=== PATIENT | female | born 1985 | race Caucasian/White ===

== ENCOUNTER 2016-09-18 18:16 | Emergency (ER) | payer OTHER ==
[~2016-09-18] VITALS: Ht 152.4 cm; Wt 79.4 kg
[2016-09-18 18:16] VITALS: BP 119/62
[~2016-09-18 18:16] MED LIST: DIPH25CA58 PO
[2016-09-18] MEDS ORDERED: DIPH25CA58 PO (18:47)
--- NOTE | 2016-09-18 19:06 | PHYS DOC ---
Past History Past Medical History: No Pertinent History, Kidney Stones, Other Past Surgical History: No Surgical History, Other Alcohol Use: Occasionally Drug Use: None Adult General Chief Complaint Chief Complaint: INSECT BITE [facility] HPI Patient is a pleasant 31-year-old otherwise healthy female who was playing outside yesterday with her 2 children who noted earlier today small circular lesions on the instep right and left forearm measuring 2 in size at most with no central clearing but intensely itchy. She noted no vesicles no other satellite lesions no joint pain no fevers chills headache no abdominal pain no nausea vomiting no other skin lesions other than the 2 noted. She's not had before she took some Benadryl with minimal improvement of her symptoms. There is no red streaking along the skin there is no other complaint. Review of Systems Review of Systems Constitutional: Denies fever or chills [] Eyes: Denies change in visual acuity, redness, or eye pain [] HENT: Denies nasal congestion or sore throat [] Respiratory: Denies cough or shortness of breath [] Cardiovascular: No additional information not addressed in HPI [] GI: Denies abdominal pain, nausea, vomiting, bloody stools or diarrhea [] : Denies dysuria or hematuria [] Musculoskeletal: Denies back pain or joint pain [] Integument: Small circular skin lesion located on the inside of the right and left forearm. Measuring 1-2 cm at most circular in nature Neurologic: Denies headache, focal weakness or sensory changes [] Endocrine: Denies polyuria or polydipsia [] Allergies Allergies Allergies Coded Allergies Type Severity Reaction Last Updated Verified azithromycin Allergy Intermediate 09/30/15 Yes Physical Exam Physical Exam Constitutional: Well developed, well nourished, no acute distress, non-toxic appearance. [] Cardiovascular:Heart rate regular rhythm, no murmur [] Lungs & Thorax: Bilateral breath sounds clear to auscultation [] Abdomen: Bowel sounds normal, soft, no tenderness, no masses, no pulsatile masses. [] Skin: Warm, dry, mild circular erythema measuring 1-2 cm on the inside of the right and left forearm there are only 2 lesions. There is no central clearing there is no joint involvement is not circumferential there is no vesicles has no other satellite lesions. Patient's reveals brisk cap refill at +2+2 peripheral pulses normal strength, sensation no other lymphadenitis noted. Back: No tenderness, no CVA tenderness. [] Extremities: No tenderness, no cyanosis, no clubbing, ROM intact, no edema. [] Neurologic: Alert and oriented X 3, normal motor function, normal sensory function, no focal deficits noted. [] Psychologic: Affect normal, judgement normal, mood normal. [] Current Patient Data Vital Signs Vital Signs Date Time Temp Pulse Resp B/P (MAP) Pulse Ox O2 Delivery O2 Flow Rate FiO2 09/18/16 18:16 98.5 95 20 98 Room Air EKG EKG [] Radiology/Procedures Radiology/Procedures [] Course & Med Decision Making Course & Med Decision Making Pertinent Labs and Imaging studies reviewed. (See chart for details) [] Patient with 2 small circular lesions on likely [place] mite bites based on timing location doubt Lyme disease as are no ticks involved [place] spotted fever, meningitis, disseminated gonorrhea, sepsis, patient will be given Benadryl and supportive care follow up with her primary care doctor. Impression local insect bite envenomation without infection or competition. Disposition outpatient primary care evaluation 24-st 48 hours. Treatment local wound care, Benadryl and precautions Dragon Disclaimer Dragon Disclaimer This chart was dictated in whole or in part using Voice Recognition software in a busy, high-work load, and often noisy Emergency Department environment. It may contain unintended and wholly unrecognized errors or omissions. Departure Departure: Impression: Primary Impression: Insect bite of right arm Additional Impression: Insect bite of arm, left Patient Instructions: Insect Bite Additional Instructions: Please return for any fevers greater than 102.2 local reaction he gets bigger than 3 or 4 cm despite treatment or given any questions concerns about the wound itself. This wound should last few days and get progressively better with the use of Benadryl. But please return if this does not treat your symptoms. Please follow-up with your primary doctor for wound check in 48 hours if one still present. Scripts Diphenhydramine Hcl (BENADRYL) 25 Mg Capsule 1 CAP PO QHS, #30 CAP 1 Refill Prov: DEREK BANDA MD 09/18/16 Problem Qualifiers DEREK BANDA MD September 18, 2016 19:06
== END 2016-09-18 18:56 | disposition home or self-care (01) ==
LOC: ER 18:16
DX: S40.861A Insect bite (nonvenomous) of right upper arm, initial encounter (principal); S40.862A Insect bite (nonvenomous) of left upper arm, initial encounter; Z88.1 Allergy status to other antibiotic agents; W57.XXXA Bitten or stung by nonvenomous insect and other nonvenomous arthropods, initial encounter; Y93.89 Activity, other specified; Y99.8 Other external cause status; Y92.89 Other specified places as the place of occurrence of the external cause
CPT/HCPCS: 99283

== ENCOUNTER 2017-04-22 19:11 | Emergency (ER) | payer OTHER ==
--- NOTE | 2017-04-22 20:23 | PHYS DOC ---
General Chief Complaint: TOE PROBLEM Stated Complaint: LEFT BIG TOE INJURY Time Seen by MD: 19:21 Source: patient Exam Limitations: no limitations Problems: History of Present Illness Initial Comments Patient is a 31-year-old female who comes to the ED complaining of left foot pain. Patient states that she awoke yesterday with pain at her left first MTP joint. She states that she felt like it was swollen, she's tried to stay off of it but it has not gotten any better. Pain is tolerable described as mild to moderate worse with activity better with rest. She denies any trauma she does not wear high heels she has family history of bunions and thinks that she may have to have bunionectomy in the future. She has sought no prior treatment for this condition and has come to the emergency department wearing house slippers. She denies exquisite tenderness to the skin or redness symptoms or family history. No numbness tingling weakness or radiating symptoms no fever chills or myalgias. No pre-arrival treatment. Onset: yesterday Severity: moderate Pain/Injury Location: left 1st toe Method of Injury: unknown Modifying Factors: worse with jarring, worse with movement, improves with rest Allergies: Coded Allergies: azithromycin (Verified Allergy, Intermediate, 09/30/15) Past Medical History Medical History: other (kidney stones ) Surgical History: noncontributory Social History Smoker: cigarettes Alcohol: occasionally Drugs: marijuana Review of Systems Constitutional: denies chills, denies fever, denies malaise Respiratory: denies cough, denies shortness of breath Cardiovascular: denies chest pain, denies palpitations Gastrointestinal: denies abdominal pain, denies nausea, denies vomiting Genitourinary: denies discharge, denies frequency, denies hematuria Musculoskeletal: see HPI Psychiatric/Neurological: see HPI Physical Exam General Appearance: WD/WN, no apparent distress Neck: non-tender, supple Cardiovascular/Respiratory: normal peripheral pulses, no respiratory distress Back: no CVA tenderness, no vertebral tenderness Ankles: bilateral ankle non-tender, bilateral ankle normal inspection, bilateral ankle normal range of motion, bilateral ankle no evidence of injury Feet: right foot non-tender, right foot normal inspection, left foot normal range of motion, left foot no evidence of injury, left foot other (tenderness and mild swelling of the left first MTP joint, no erythema no warmth ligaments and tendons are intact no bony tenderness or palpable bony deformity extremity is neurovascularly intact) Neurologic/Tendon: normal sensation, normal motor functions, normal tendon functions, responds to pain, no evidence tendon injury Psychiatric: alert, oriented x 3 Skin: normal color, warm/dry Orders, Labs, Meds Toes left: No acute osseous abnormality, interpreted by Dr. Etienne. I discussed bunion deformity, activity modification, prescription and over-the- counter medications. I discussed postop shoe and close PCP P follow-up. Recommended discontinue substance abuse signs and symptoms to monitor as well as indications for urgent return were discussed the patient's questions were answered to her satisfaction. She expressed agreement and understanding with the treatment plan. I Tylenol 3 start pack was dispensed for breakthrough pain overnight tonight. Departure Time of Disposition: 20:20 Disposition: HOME, SELF-CARE Diagnosis: hallux valgus left foot Condition: GOOD Patient Instructions: Bunion (Hallux Valgus)-SportsMed, RICE - Routine Care for Injuries, [id number] Additional Instructions: RICE, see handout. A Tylenol 3 starter pack was dispensed to you, take 1 every 6 hours with food for severe breakthrough pain. Prescription: Naprosyn Wear postop shoe as needed for symptom control. Follow-up with your doctor next week for recheck, may need podiatry referral ultimately. Return to ED with new or changing symptoms. ALEXANDRE ETIENNE DO Apr 22, 2017 20:23
[2017-04-22] MEDS ORDERED: NAPR-683 PO (20:25)
[2017-04-22 20:30] VITALS: BP 114/65
[2017-04-22] MEDS ORDERED: ACETAMINOPHEN/CODEINE 300/30MG 4TABLET STARTPACK. PO ONE (20:45)
--- NOTE | 2017-04-23 08:54 | RAD ---
Left great toe 3 views. History: First MTP joint pain and swelling 3 views were taken of the left great toe. There is no fracture or bony destructive process. An erosion is not evident. There is soft tissue swelling. Impression: 1. No acute osseous abnormality noted in the left great toe.
== END 2017-04-22 20:38 | disposition home or self-care (01) ==
LOC: ER 19:11
DX: M20.12 Hallux valgus (acquired), left foot (principal); F17.210 Nicotine dependence, cigarettes, uncomplicated; F12.10 Cannabis abuse, uncomplicated; Z87.442 Personal history of urinary calculi; Z88.1 Allergy status to other antibiotic agents
CPT/HCPCS: 73660; 99284

== ENCOUNTER 2017-06-03 14:55 | Emergency (ER) | payer OTHER ==
[~2017-06-03] VITALS: Ht 152.4 cm; Wt 84.4 kg
[~2017-06-03 14:55] MED LIST changes: +NAPR-683 PO
[2017-06-03 15:41] VITALS: BP 118/73
--- NOTE | 2017-06-04 08:11 | PHYS DOC ---
General Chief Complaint: MEDICATION REFILL Stated Complaint: MED REFILL Time Seen by MD: 14:58 Source: patient Problems: History of Present Illness Initial Comments Patient came to the ED complaining of right hand and arm pain. Patient is wearing a splint, states she suffered a boxer fracture after punching a wall and was seen at the [facility] emergency department last week. She says that a CT was ordered and she may need surgery. States that she had hydrocodone prescription which she has run out of and is requesting a refill. She says she has an orthopedics appointment scheduled for next week and wants pain medications. I asked her who ordered the CT if she has not yet seen orthopedics and she is unable to answer that question. I asked her to the prescribing doctor was for her pain medications again she could not answer that question. There appeared to be some missing details from the history to advise the patient we would obtain records from the [facility] emergency department so we could better care for her, she became dismayed at this and stated she would make a phone call for us. I reassured her that we would get her records quickly and take care of her as needed. [employer] advise me that the patient was not seen at [facility] so I asked if they could find a CT report from yesterday or something to support the patient's story. I went back to fast track to discuss this with the patient and advise her that there would be a little bit longer wait while we tried to find her records however the patient was not in her room and could not be located in the emergency department. She apparently left AMA, drug-seeking behavior and suspicion that she may have been falsifying her story cannot be ruled out at this time. Onset: last week Severity: severe Pain/Injury Location: right hand Method of Injury: direct blow Modifying Factors: improves with other Allergies: Coded Allergies: azithromycin (Verified Allergy, Intermediate, 09/30/15) Past Medical History Surgical History: noncontributory Review of Systems Constitutional: other (no review of systems) Physical Exam General Appearance: WD/WN (no physical exam) Departure Disposition: 07 AGAINST MEDICAL ADVICE Diagnosis: pain medication requests suspicious for drug-seeki Condition: LEFT WITHOUT BEING SEEN ALEXANDRE RUBIO DO Jun 04, 2017 08:11
== END 2017-06-03 17:00 | disposition left against medical advice (07) ==
LOC: ER 14:55
DX: Z76.0 Encounter for issue of repeat prescription (principal); Z53.21 Procedure and treatment not carried out due to patient leaving prior to being seen by health care provider

== ENCOUNTER 2017-10-29 17:11 | Emergency (ER) | payer OTHER ==
[~2017-10-29] VITALS: Ht 152.4 cm; Wt 86.0 kg
[2017-10-29 17:19] VITALS: BP 114/65
--- NOTE | 2017-10-29 17:54 | PHYS DOC ---
Past History Past Medical History: No Pertinent History Past Surgical History: Tubal ligation, Other Additional Smoking Information: 1 pack daily Alcohol Use: None Drug Use: None Adult General Chief Complaint Chief Complaint: HEAD INJURY/TRAUMA HPI HPI 32 -year-old female patient states she hit right side of her head while she was at work and bending under a shelf and suddenly stood up and hit right side of her head against the metal part without loss of consciousness about an hour prior to arrival to ER. Patient rated her pain 7/10 and denies nausea and vomiting, fever and chills, focal neuro deficit, or other injuries. She denies . Patient is not up-to-date with her tetanus immobilization. Review of Systems Review of Systems Constitutional: Denies fever or chills [] Eyes: Denies change in visual acuity, redness, or eye pain [] HENT: Denies nasal congestion or sore throat [] Respiratory: Denies cough or shortness of breath [] Cardiovascular: No additional information not addressed in HPI [] GI: Denies abdominal pain, nausea, vomiting, bloody stools or diarrhea [] : Denies dysuria or hematuria [] Musculoskeletal: Denies back pain or joint pain [] Integument: Denies rash or skin lesions [] Neurologic: Reports headache, denies focal weakness or sensory changes [] Endocrine: Denies polyuria or polydipsia [] All other systems were reviewed and found to be within normal limits, except as documented in this note. Allergies Allergies Allergies Coded Allergies Type Severity Reaction Last Updated Verified azithromycin Allergy Intermediate 09/30/15 Yes Physical Exam Physical Exam Constitutional: Well developed, well nourished, mild distress, non-toxic appearance. [] HENT: Normocephalic, small abrasion of right frontal scalp without active bleeding, bilateral external ears normal, oropharynx moist, no oral exudates, nose normal. [] Eyes: PERRLA, EOMI, conjunctiva normal, no discharge. [] Neck: Normal range of motion, no tenderness, supple, no stridor. [] Cardiovascular:Heart rate regular rhythm, no murmur [] Lungs & Thorax: Bilateral breath sounds clear to auscultation [] Skin: Warm, dry, no erythema, no rash. [] Back: No tenderness, no CVA tenderness. [] Extremities: No tenderness, no cyanosis, no clubbing, ROM intact, no edema. [] Neurologic: Alert and oriented X 3, normal motor function, normal sensory function, no focal deficits noted. [] Psychologic: Affect normal, judgement normal, mood normal. [] Current Patient Data Vital Signs Vital Signs Date Time Temp Pulse Resp B/P (MAP) Pulse Ox O2 Delivery O2 Flow Rate FiO2 10/29/17 17:19 97.9 54 18 97 Room Air EKG EKG [] Radiology/Procedures Radiology/Procedures My interpretation of CT head, shows no shift, mass, edema, bleed, or fracture. See formal report when available.[] Course & Med Decision Making Course & Med Decision Making Pertinent Imaging studies is pending. Patient care transferred to Dr. Shay at 1800. 1. Head Injury 2. Contusion/ Abrasion Patient take Tylenol for pain. Patient follow-up primary care. Patient return of any concerns. Dragon Disclaimer Dragon Disclaimer This electronic medical record was generated, in whole or in part, using a voice recognition dictation system. Departure Departure: Impression: Primary Impression: Head injury Additional Impression: Scalp abrasion Referrals: PCP,NO (PCP) Problem Qualifiers KAMRYN PRINCE MD Oct 29, 2017 17:54 CHEL SHAY MD Oct 29, 2017 18:15
--- NOTE | 2017-10-29 17:58 | RAD ---
EXAM: Head CT without contrast. HISTORY: Trauma. TECHNIQUE: Computed tomographic images of the head were obtained without contrast. *One or more of the following individualized dose reduction techniques were utilized for this examination: 1. Automated exposure control. 2. Adjustment of the mA and/or kV according to patient size. 3. Use of iterative reconstruction technique. COMPARISON: None. FINDINGS: There is no acute or subacute extra-axial or intraparenchymal hemorrhage. There is no mass effect or midline shift. There is no hydrocephalus. The kraus-white matter differentiation pattern is intact. The visualized portions of the orbits, paranasal sinuses and mastoid air cells are unremarkable. No suspicious calvarial lesion is seen. IMPRESSION: No acute intracranial findings. Electronically signed by: Kathy Garcia MD (10/29/2017 5:55 PM) [id number]
[2017-10-29] MEDS: DIPHTH,PERTUSS(ACELL),TET TOX 0.5 ML DISP.SYRIN. VAX IM ONE (18:00)
[2017-10-29] MEDS: KETOROLAC 60 MG/2 ML VIAL. IM ONE (18:17)
== END 2017-10-29 18:15 | disposition home or self-care (01) ==
LOC: ER 17:11
DX: S00.01XA Abrasion of scalp, initial encounter (principal); F17.200 Nicotine dependence, unspecified, uncomplicated; Z88.1 Allergy status to other antibiotic agents; W22.8XXA Striking against or struck by other objects, initial encounter; Y93.89 Activity, other specified; Y99.8 Other external cause status; Y92.89 Other specified places as the place of occurrence of the external cause
CPT/HCPCS: 70450; 90471; 90715; 96372; 99284; J1885

== ENCOUNTER 2018-02-03 08:41 | Emergency (ER) | payer OTHER ==
[~2018-02-03] VITALS: Ht 152.4 cm; Wt 86.0 kg
[2018-02-03 08:47] VITALS: BP 131/84
[2018-02-03] MEDS ORDERED: HYDR25TA PO (09:12)
[2018-02-03] MEDS ORDERED: METH4TAB2 PO (09:12)
--- NOTE | 2018-02-03 09:12 | PHYS DOC ---
Past History Past Medical History: No Pertinent History Past Surgical History: Tubal ligation, Other Smoking: Cigarettes Alcohol Use: None Drug Use: None Adult General Chief Complaint Chief Complaint: SKIN RASH/ABSCESS HPI HPI Patient is a 32 year old female who presents with complaining of rash. Patient states she woke up this morning and had generalized Michael in her extremities with mild itching. Patient denies shortness of breath, tongue swelling, fever and chills, nausea and vomiting. Patient states states she had hives before but this time is worse than her usual. Patient denies taking new medication but she states she tried some fish yesterday that was new for her. Review of Systems Review of Systems Constitutional: Denies fever or chills [] Eyes: Denies change in visual acuity, redness, or eye pain [] HENT: Denies nasal congestion or sore throat [] Respiratory: Denies cough or shortness of breath [] Cardiovascular: No additional information not addressed in HPI [] GI: Denies abdominal pain, nausea, vomiting, bloody stools or diarrhea [] : Denies dysuria or hematuria [] Musculoskeletal: Denies back pain or joint pain [] Integument: Reports rash] Neurologic: Denies headache, focal weakness or sensory changes [] Endocrine: Denies polyuria or polydipsia [] All other systems were reviewed and found to be within normal limits, except as documented in this note. Allergies Allergies Allergies Coded Allergies Type Severity Reaction Last Updated Verified azithromycin Allergy Intermediate 09/30/15 Yes Physical Exam Physical Exam Constitutional: Well developed, well nourished, no acute distress, non-toxic appearance. [] HENT: Normocephalic, atraumatic, bilateral external ears normal, oropharynx moist, no oral exudates, nose normal. [] Eyes: PERRLA, EOMI, conjunctiva normal, no discharge. [] Neck: Normal range of motion, no tenderness, supple, no stridor. [] Cardiovascular:Heart rate regular rhythm, no murmur [] Lungs & Thorax: Bilateral breath sounds clear to auscultation [] Skin: Warm, dry, no erythema, multiple areas of small patchy rash on upper and lower extremities and few areas on upper back and trunk and face Back: No tenderness, no CVA tenderness. [] Extremities: No tenderness, no cyanosis, no clubbing, ROM intact, no edema. [] Neurologic: Alert and oriented X 3, normal motor function, normal sensory function, no focal deficits noted. [] Psychologic: Affect normal, judgement normal, mood normal. [] Current Patient Data Vital Signs Vital Signs Date Time Temp Pulse Resp B/P (MAP) Pulse Ox O2 Delivery O2 Flow Rate FiO2 02/03/18 08:47 98.2 88 18 99 Room Air EKG EKG [] Radiology/Procedures Radiology/Procedures [] Course & Med Decision Making Course & Med Decision Making Evaluation of patient in ER showed 32-year-old female patient with generalized rash with mild itching without shortness of breath or throat swelling. Patient tried a new foods yesterday. Plan discharge patient home with diagnose of allergic rash. Dragon Disclaimer Dragon Disclaimer This electronic medical record was generated, in whole or in part, using a voice recognition dictation system. Departure Departure: Impression: Primary Impression: Rash due to allergy Additional Impression: Tobacco abuse counseling Disposition: HOME, SELF-CARE (at 0909) Condition: STABLE Referrals: PCP,NO (PCP) Patient Instructions: Rash, Smoking Cessation, Tips For Success Additional Instructions: Drink plenty of liquids Follow-up with your primary care physician in 3-5 days Return to ER if not getting better Scripts Hydroxyzine Hcl (HYDROXYZINE HCL) 25 Mg Tablet 1 TAB PO TID PRN for ITCHING, #30 TAB Prov: KAMRYN PRINCE MD 02/03/18 Methylprednisolone (MEDROL) 4 Mg Tab.ds.pk 1 PKG PO UD, #1 PKG Prov: KAMRYN PRINCE MD 02/03/18 Problem Qualifiers KAMRYN PRINCE MD Feb 03, 2018 09:12
== END 2018-02-03 09:14 | disposition home or self-care (01) ==
LOC: ER 08:41
DX: R21 Rash and other nonspecific skin eruption (principal); T78.40XA Allergy, unspecified, initial encounter; F17.210 Nicotine dependence, cigarettes, uncomplicated; Z71.6 Tobacco abuse counseling; Z88.1 Allergy status to other antibiotic agents; X58.XXXA Exposure to other specified factors, initial encounter
CPT/HCPCS: 99283

== ENCOUNTER 2018-02-04 09:35 | Emergency (ER) | payer OTHER ==
[~2018-02-04] VITALS: Ht 152.4 cm; Wt 91.3 kg
[2018-02-04 09:35] VITALS: BP 119/73
[~2018-02-04 09:35] MED LIST changes: +HYDR25TA PO; +METH4TAB2 PO
[2018-02-04] MEDS ORDERED: FAMOTIDINE 20 MG TABLET PO ONE (10:00)
[2018-02-04] MEDS ORDERED: methylPREDNISolone SOD SUCC PF 125 MG/2 ML VIAL. IM ONE (10:00)
--- NOTE | 2018-02-04 10:16 | PHYS DOC ---
Past History Past Medical History: No Pertinent History Past Surgical History: Tubal ligation, Other Smoking: Cigarettes Alcohol Use: Occasionally Drug Use: Marijuana Adult General Chief Complaint Chief Complaint: SKIN RASH/ABSCESS HPI HPI Patient is a 32 year old female who presents with complaining of pruritic rash for the last 3 days that gradually getting worse and complaining of increasing of itching. Patient denies shortness of breath, fever and chills, sick contacts , throat swelling. Patient was seen in this emergency room yesterday and didn't want treatment in ER and had prescription of hydroxyzine and Medrol Dosepak but patient states she had been by her medication and asking for a shot of medication. Review of Systems Review of Systems Constitutional: Denies fever or chills [] Eyes: Denies change in visual acuity, redness, or eye pain [] HENT: Denies nasal congestion or sore throat [] Respiratory: Denies cough or shortness of breath [] Cardiovascular: No additional information not addressed in HPI [] GI: Denies abdominal pain, nausea, vomiting, bloody stools or diarrhea [] : Denies dysuria or hematuria [] Musculoskeletal: Denies back pain or joint pain [] Integument: Reports rash and itching Neurologic: Denies headache, focal weakness or sensory changes [] Endocrine: Denies polyuria or polydipsia [] All other systems were reviewed and found to be within normal limits, except as documented in this note. Current Medications Current Medications Current Medications Medications (Trade) Dose Ordered Sig/Donna Start Time Stop Time Status Last Admin Dose Admin Famotidine (Pepcid) 20 mg 1X ONCE 02/04/18 10:00 02/04/18 10:01 UNV Methylprednisolone Sodium Succinate (SOLU-Medrol 125MG VIAL) 125 mg 1X ONCE 02/04/18 10:00 02/04/18 10:01 UNV Allergies Allergies Allergies Coded Allergies Type Severity Reaction Last Updated Verified azithromycin Allergy Intermediate 09/30/15 Yes Physical Exam Physical Exam Constitutional: Well developed, well nourished, mild distress, non-toxic appearance. [] HENT: Normocephalic, atraumatic, bilateral external ears normal, oropharynx moist, no oral exudates, nose normal. [] Eyes: PERRLA, EOMI, conjunctiva normal, no discharge. [] Neck: Normal range of motion, no tenderness, supple, no stridor. [] Cardiovascular:Heart rate regular rhythm, no murmur [] Lungs & Thorax: Bilateral breath sounds clear to auscultation [] Skin: Warm, dry, no erythema, multiple areas of patchy rash on upper and lower extremities and few area on trunk does sign of infection Back: No tenderness, no CVA tenderness. [] Extremities: No tenderness, no cyanosis, no clubbing, ROM intact, no edema. [] Neurologic: Alert and oriented X 3, normal motor function, normal sensory function, no focal deficits noted. [] Psychologic: Affect normal, judgement normal, mood normal. [] Current Patient Data Vital Signs Vital Signs Date Time Temp Pulse Resp B/P (MAP) Pulse Ox O2 Delivery O2 Flow Rate FiO2 02/04/18 09:35 98.2 75 16 99 Room Air EKG EKG [] Radiology/Procedures Radiology/Procedures [] Course & Med Decision Making Course & Med Decision Making Evaluation of patient in ER showed 33-year-old female patient presented to the emergency room because of pruritic rash that getting worse since yesterday. Patient did not get her medication prescribed in the emergency room yesterday. Patient had unremarkable physical exam except for patchy rash of upper and lower extremities. Patient treated with Solu-Medrol and Pepcid and instructed to buy and start taking her medication. Dragon Disclaimer Dragon Disclaimer This electronic medical record was generated, in whole or in part, using a voice recognition dictation system. Departure Departure: Impression: Primary Impression: Rash due to allergy Additional Impressions: Tobacco abuse Tobacco abuse counseling Disposition: HOME, SELF-CARE (at 1020) Condition: STABLE Referrals: PCP,NO (PCP) Patient Instructions: Rash, Smoking Cessation, Tips For Success Additional Instructions: Buy and take your prescription medication given yesterday Drink plenty of liquids Follow-up with your primary care physician in 3-5 days Return to ER if not getting better Problem Qualifiers KAMRYN PRINCE MD Feb 04, 2018 10:16
== END 2018-02-04 10:20 | disposition home or self-care (01) ==
LOC: ER 09:35
DX: T78.40XA Allergy, unspecified, initial encounter (principal); R21 Rash and other nonspecific skin eruption; F17.210 Nicotine dependence, cigarettes, uncomplicated; Z71.6 Tobacco abuse counseling; Z88.1 Allergy status to other antibiotic agents; X58.XXXA Exposure to other specified factors, initial encounter
CPT/HCPCS: 96372; 99283; J2930

== ENCOUNTER 2018-11-30 10:14 | Emergency (ER) | payer OTHER ==
[~2018-11-30] VITALS: Ht 152.4 cm; Wt 86.5 kg
[2018-11-30] MEDS ORDERED: MORPHINE SULFATE 4 MG/ML DISP.SYRIN. IV ONE (11:15)
[2018-11-30] MEDS ORDERED: ONDANSETRON PF 4 MG/2 ML VIAL. IV ONE (11:15)
[2018-11-30] MEDS ORDERED: IV NORMAL SALINE 1,000ML 1,000 ML IV ONE (11:15)
[2018-11-30] MEDS ORDERED: IOHEXOL 300 MG/ML 75 ML VIAL. IV ONE (11:45)
[2018-11-30 11:53] LABS: BASO % 0 % (0-3); EOS # 0.4 x10^3/uL (0.0-0.7); EOS % 4 % (0-3); HEMATOCRIT 44.7 % (36.0-47.0); HEMOGLOBIN 14.5 g/dL (12.0-15.5); LYMPH # 2.5 x10^3/uL (1.0-4.8); LYMPH % 30 % (24-48); MEAN CORPUSCULAR HEMOGLOBIN 29 pg (25-35); MEAN CORPUSCULAR HGB CONC 33 g/dL (31-37); MEAN CORPUSCULAR VOLUME 88 fL (79-100); MONO # 0.5 x10^3/uL (0.0-1.1); MONO % 6 % (0-9); NEUT # 4.9 x10^3uL (1.8-7.7); NEUT % 59 % (31-73); PLATELET COUNT 303 x10^3/uL (140-400); RED BLOOD COUNT 5.07 x10^6/uL (3.50-5.40); RED CELL DISTRIBUTION WIDTH 14.7 % (11.5-14.5); WHITE BLOOD COUNT 8.3 x10^3/uL (4.0-11.0)
--- NOTE | 2018-11-30 11:55 | PHYS DOC ---
Past History Past Medical History: No Pertinent History Past Surgical History: Cholecystectomy, Other Smoking: Cigarettes Alcohol Use: None Drug Use: Marijuana Social History Narrative: daily Adult General Chief Complaint Chief Complaint: ABDOMINAL PAIN HPI HPI Patient is a 33-year-old female presenting with abdominal pain epigastric related to the back is having for 2 weeks really last night got worse she was do ubled over in pain she was throwing up when she tried to eat this was unusual partner brought her into the emergency room for evaluation she has appointment with Dr. Peters at 2:30 PM at this facility. No fever just the pain trying pain medication with minimal relief. Review of Systems Review of Systems Constitutional: Denies fever or chills [] Eyes: Denies change in visual acuity, redness, or eye pain [] HENT: Denies nasal congestion or sore throat [] Respiratory: Denies cough or shortness of breath [] Cardiovascular: Musculoskeletal: Denies back pain or joint pain [] Integument: Denies rash or skin lesions [] Neurologic: Denies headache, focal weakness or sensory changes [] Endocrine: Denies polyuria or polydipsia [] All other systems were reviewed and found to be within normal limits, except as documented in this note. Current Medications Current Medications Current Medications Medications (Trade) Dose Ordered Sig/Donna Start Time Stop Time Status Last Admin Dose Admin Iohexol (Omnipaque 300 Mg/ml) 75 ml 1X ONCE 11/30/18 11:45 11/30/18 11:46 DC Morphine Sulfate (Morphine 4mg Syringe) 4 mg 1X ONCE 11/30/18 11:15 11/30/18 11:16 DC 11/30/18 11:42 4 MG Ondansetron HCl (Zofran) 4 mg 1X ONCE 11/30/18 11:15 11/30/18 11:16 DC 11/30/18 11:40 4 MG Sodium Chloride 1,000 ml @ 1,000 mls/hr 1X ONCE 11/30/18 11:15 11/30/18 12:14 11/30/18 11:39 1,000 MLS/HR Allergies Allergies Allergies Coded Allergies Type Severity Reaction Last Updated Verified azithromycin Allergy Intermediate 09/30/15 Yes Physical Exam Physical Exam Constitutional: Well developed, mild distress with dry mucous membranes HENT: Normocephalic, atraumatic, bilateral external ears normal, no oral exudates, nose normal. [] Eyes: PERRLA, EOMI, conjunctiva normal, no discharge. [] Neck: Normal range of motion, no tenderness, supple, no stridor. [] Cardiovascular:Heart rate regular rhythm, no murmur [] Lungs & Thorax: Bilateral breath sounds clear to auscultation [] Abdomen: Bowel sounds normal, soft, epigastric tenderness and right upper quadrant tenderness was otherwise well-healed surgical incisions no peritonitis Skin: Warm, dry, no erythema, no rash. [] Back: No tenderness, no CVA tenderness. [] Extremities: No tenderness, no cyanosis, no clubbing, ROM intact, no edema. [] Neurologic: Alert and oriented X 3, normal motor function, normal sensory function, no focal deficits noted. [] Psychologic: Affect normal, judgement normal, mood normal. [] Current Patient Data Vital Signs Vital Signs Date Time Temp Pulse Resp B/P (MAP) Pulse Ox O2 Delivery O2 Flow Rate FiO2 11/30/18 11:42 16 97 Room Air 11/30/18 11:35 60 102/56 (71) 11/30/18 10:14 98.6 Lab Results Laboratory Tests Test 11/30/18 11:39 POC Urine HCG, Qualitative hcg negative (Negative) EKG EKG [] Radiology/Procedures Radiology/Procedures [] Impressions: IMPRESSION: Status post cholecystectomy without evidence for intrahepatic or extrahepatic biliary ductal dilatation. No abscess or free air. IUD is present. There is a 4 mm nonobstructing calculus in the inferior pole the left kidney. No hydronephrosis. Electronically signed by: Audra Heaton MD (11/30/2018 12:34 PM) [id number] Course & Med Decision Making Course & Med Decision Making Pertinent Labs and Imaging studies reviewed. (See chart for details) []33-year-old female who is 2 weeks status post a lap cholecystectomy presenting with right upper quadrant epigastric pain with vomiting differential would include inadequate postoperative pain control versus less likely pancreatitis retained stone bile leak etc. after CT and labs will d/w surgeon noted u/a no symptoms dirty sample likely contaminant, culture pending d/w satish, he can f/u in clinic this afternoon. reviewed ct report and labs. pt felt a little better in the er. gave rx for pain control and antacid Dragon Disclaimer Dragon Disclaimer This electronic medical record was generated, in whole or in part, using a voice recognition dictation system. Departure Departure: Impression: Primary Impression: Abdominal pain Disposition: 01 HOME, SELF-CARE Condition: STABLE Referrals: PCP,LUBA (PCP) Scripts Omeprazole (OMEPRAZOLE) 20 Mg Tablet.dr 1 TAB PO DAILY for pain, #30 TAB 1 Refill Prov: MOHAN REYNA MD 11/30/18 Hydrocodone Bit/Acetaminophen (NORCO 5-325 TABLET) 1 Each Tablet 1 TAB PO BID PRN for PAIN, #12 TAB Prov: MOHAN REYNA MD 11/30/18 MOHAN REYNA MD Nov 30, 2018 11:55
[2018-11-30 11:59] LABS: BACTERIA,URINE MOD /HPF (0-FEW); BILIRUBIN,URINE NEG (NEG); CLARITY,URINE CLOUDY; COLOR,URINE AMBER; GLUCOSE,URINE NEG (NEG); NITRITE,URINE NEG (NEG); RBC,URINE OCC /HPF (0-2); SQUAMOUS EPITHELIAL CELL,UR MOD /LPF; UROBILINOGEN,URINE 0.2 mg/dL (0.2 mg/dL)
[2018-11-30 12:01] LABS: ALBUMIN 3.4 g/dL (3.4-5.0); CREATININE 0.7 mg/dL (0.6-1.0); GFR 96.4; POTASSIUM 3.7 mmol/L (3.5-5.1); TOTAL BILIRUBIN 0.6 mg/dL (0.2-1.0); TOTAL PROTEIN 6.8 g/dL (6.4-8.2)
[2018-11-30] MEDS ORDERED: LIDO:MAALOX 1:1 20 ML SINGLE DOSE. PO ONE (12:15)
--- NOTE | 2018-11-30 12:37 | RAD ---
PQRS Compliance Statement: One or more of the following individualized dose reduction techniques were utilized for this examination: 1. Automated exposure control 2. Adjustment of the mA and/or kV according to patient size 3. Use of iterative reconstruction technique CT abdomen/pelvis with contrast 11/30/2018 11:38 AM INDICATION: Right upper quadrant abdominal pain after cholecystectomy. COMPARISON: None available TECHNIQUE: Multiple axial CT images of the abdomen and pelvis were obtained after the intravenous administration of 75 mL of nonionic contrast. Coronal and sagittal reformats are provided. FINDINGS: Lung bases are clear. Heart size is within normal limits. Liver, spleen, bilateral adrenal glands and pancreas are normal in appearance. Gallbladder surgically absent. No intrahepatic or extrahepatic biliary ductal dilatation. The abdominal aorta is normal in course and caliber. There are no pathologically enlarged lymph nodes in the abdomen and pelvis. There is no abdominal free fluid. There is no free intraperitoneal air. Small and large bowel are normal in caliber. There is no evidence for bowel obstruction. There are no pericolonic inflammatory changes. A normal, nondilated appendix is visualized without adjacent inflammatory changes. There is a 4 mm nonobstructing calculus in inferior pole the left kidney. Kidneys enhance symmetrically. No hydronephrosis or suspicious renal mass. No calculi are identified in the ureters or urinary bladder. Urinary bladder is within normal limits given degree of distention. Uterus is normal by CT. IUD is present. No suspicious adnexal mass is identified. No suspicious osseous abnormality. IMPRESSION: Status post cholecystectomy without evidence for intrahepatic or extrahepatic biliary ductal dilatation. No abscess or free air. IUD is present. There is a 4 mm nonobstructing calculus in the inferior pole the left kidney. No hydronephrosis. Electronically signed by: Audra Heaton MD (11/30/2018 12:34 PM) [id number]
[2018-11-30] MEDS ORDERED: HYDR-3165 PO (13:27)
[2018-11-30] MEDS ORDERED: OMEP20TA8 PO (13:27)
[2018-11-30 13:36] VITALS: BP 123/78
== END 2018-11-30 13:37 | disposition home or self-care (01) ==
LOC: ER 10:14
DX: R10.13 Epigastric pain (principal); R10.11 Right upper quadrant pain; R11.11 Vomiting without nausea; F17.210 Nicotine dependence, cigarettes, uncomplicated; Z90.49 Acquired absence of other specified parts of digestive tract; Z88.1 Allergy status to other antibiotic agents
CPT/HCPCS: 36415; 74177; 80053; 81001; 81025; 83690; 85025; 87086; 96361; 96374; 96375; 99285; J2270; J2405; J3010; Q9967; J7030

== ENCOUNTER 2019-08-05 19:53 | Emergency (ER) | payer OTHER ==
[~2019-08-05] VITALS: Ht 152.4 cm; Wt 84.1 kg
[~2019-08-05 19:53] MED LIST changes: +HYDR-3165 PO; +OMEP20TA8 PO
--- NOTE | 2019-08-05 20:23 | PHYS DOC ---
Past History Past Medical History: No Pertinent History, Bronchitis, Fibromyalgia, Other Past Surgical History: Cholecystectomy, Other Smoking: Cigarettes Alcohol Use: None Drug Use: Marijuana Adult General Chief Complaint Chief Complaint: DIZZY/LIGHT HEADED... " I ve been dizzy... ever since I donated ... blood today.... I usually try..... to donate every 2 [address].. [address]..." HPI HPI Patient is a 34 year old female who presents with above hx and complaints of dizziness after donation of blood. Patient denies any travel outside [place] the area. Patient denies any history of fever or chills. Patient becomes near syncope upon standing rapidly. Patient denies any tachycardia or dysrhythmias. Patient denies any history immunosuppression. Patient denies any specific ill contacts. Does have history of multiple ED visits in past. Patient did not get flu vaccination this season. Patient reportedly donated one unit of blood. 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 Patient did eat prior done name blood but however has not eaten since dilation this morning. Patient does smoke tobacco and marijuana. Review of Systems Review of Systems Constitutional: Denies fever or chills [] Eyes: Denies change in visual acuity, redness, or eye pain [] HENT: Denies nasal congestion or sore throat [] Respiratory: Denies cough or shortness of breath [] Cardiovascular: No additional information not addressed in HPI [. Patient]complaints of near syncope upon standing GI: Denies abdominal pain, vomiting, bloody stools or diarrhea . Patient has complaints of []nausea, : Denies dysuria or hematuria [] Musculoskeletal: Denies back pain or joint pain [] Integument: Denies rash or skin lesions [] Neurologic: Denies headache, focal weakness or sensory changes [] Endocrine: Denies polyuria or polydipsia [] All other systems were reviewed and found to be within normal limits, except as documented in this note. Family History Family History Noncontributory to presentation Current Medications Current Medications See nursing for home meds Allergies Allergies Allergies Coded Allergies Type Severity Reaction Last Updated Verified azithromycin Allergy Intermediate 09/30/15 Yes Physical Exam Physical Exam Constitutional: Mild distress, non-toxic appearance. [] HENT: Normocephalic, atraumatic, bilateral external ears normal, oropharynx dry, no oral exudates, nose normal. [] Eyes: PERRLA, EOMI, conjunctiva normal, no discharge. [] Neck: Normal range of motion, no tenderness, supple, no stridor. [] Cardiovascular:Bradycardia Heart rate regular rhythm, no murmur [] Lungs & Thorax: Bilateral breath sounds equal apex with scattered wheezes on auscultation [] Abdomen: Bowel sounds normal, soft, no tenderness, no masses, no pulsatile masses. Obese. Old surgical scars. Skin: Warm, dry, no erythema, no rash. [] Back: No tenderness, no CVA tenderness. [] Extremities: No tenderness, no cyanosis, no clubbing, ROM intact, no edema. [] Neurologic: Alert and oriented X 3, has sensory function, no focal deficits noted. []DTRs +2 at patella and brachial. Moves extremities on request. Is ambulatory with out problems after fluid bolus. Psychologic: Affect anxious, judgement normal, mood normal. [] Current Patient Data Lab Results Laboratory Tests Test 08/05/19 20:07 Glucose (Fingerstick) 124 mg/dL (70-99) H EKG EKG [] Radiology/Procedures Radiology/Procedures [][place] [address] IMAGING REPORT Signed PATIENT: RAMÓN BROWNLEE CACCOUNT: [id number] : 1985 LOCATION: ER AGE: 34 SEX: F EXAM STATUS: REG ER ORD. PHYSICIAN: CHEL SOLIS MD REASON: dizzy, cough, elev. WBC PROCEDURE: CHEST PA & LATERAL Exam: Chest 2 views INDICATION: Dizzy, cough TECHNIQUE: Frontal and lateral views the chest Comparisons: None FINDINGS: The cardiomediastinal silhouette and pulmonary vessels are within normal limits. The lung and pleural spaces are clear. IMPRESSION: No acute cardiopulmonary process. Electronically signed by: Sandra Hester MD (08/05/2019 9:52 PM) [id number] DICTATED AND SIGNED BY: SANDRA HESTER MD DATE: 08/05/192151 CC: CHEL SOLIS MD; PCP,NO ~ Course & Med Decision Making Course & Med Decision Making Pertinent Labs and Imaging studies reviewed. (See chart for details) Patient to push fluids. Take Tylenol and ibuprofen for discomfort. Push vitamin C drinks. Follow-up urine cultures. Take Keflex 500 mg 3 times a day. Encourage patient does not smoke. Patient follow-up primary care. Return if any concerns. Recommend patient avoid crowds or travel. Self quarantine. Follow with [facility] for up-to-date information on CO 19. [] Dragon Disclaimer Dragon Disclaimer This electronic medical record was generated, in whole or in part, using a voice recognition dictation system. Departure Departure: Disposition: HOME/RESIDENCE PRIOR TO ADM Condition: STABLE Referrals: PCP,NO (PCP) Scripts Cephalexin (KEFLEX) 500 Mg Capsule 500 MG PO TID for UTI for 7 Days, BOTTLE Prov: CHEL SOLIS MD 08/05/19 [place] Disclaimer This chart was dictated in whole or in part using Voice Recognition software in a busy, high-work load, and often noisy Emergency Department environment. It may contain unintended and wholly unrecognized errors or omissions. CHEL SOLIS MD Aug 05, 2019 20:23
[2019-08-05] MEDS ORDERED: IV RINGERS SOLUTION,LACTATED 1,000 ML IV SCH (20:29)
[2019-08-05] MEDS ORDERED: ONDANSETRON PF 4 MG/2 ML VIAL. IVP ONE (20:30)
[2019-08-05 20:50] LABS: BASO # 0.1 x10^3/uL (0.0-0.2); BASO % 1 % (0-3); EOS # 0.3 x10^3/uL (0.0-0.7); EOS % 2 % (0-3); HEMATOCRIT 50.5 % (36.0-47.0); HEMOGLOBIN 16.6 g/dL (12.0-15.5); LYMPH # 6.4 x10^3/uL (1.0-4.8); LYMPH % 43 % (24-48); MEAN CORPUSCULAR HEMOGLOBIN 30 pg (25-35); MEAN CORPUSCULAR HGB CONC 33 g/dL (31-37); MEAN CORPUSCULAR VOLUME 91 fL (79-100); MONO # 0.7 x10^3/uL (0.0-1.1); MONO % 5 % (0-9); NEUT # 7.5 x10^3uL (1.8-7.7); NEUT % 50 % (31-73); PLATELET COUNT 321 x10^3/uL (140-400); RED BLOOD COUNT 5.54 x10^6/uL (3.50-5.40); RED CELL DISTRIBUTION WIDTH 14.4 % (11.5-14.5); WHITE BLOOD COUNT 14.9 x10^3/uL (4.0-11.0)
[2019-08-05 21:06] LABS: CALCIUM 8.1 mg/dL (8.5-10.1); CREATININE 0.8 mg/dL (0.6-1.0); GFR 82.1; POTASSIUM 3.4 mmol/L (3.5-5.1)
[2019-08-05 21:18] LABS: ALBUMIN 3.3 g/dL (3.4-5.0); DIRECT BILIRUBIN 0.1 mg/dL (0.0-0.2); MAGNESIUM 1.9 mg/dL (1.8-2.4); TOTAL BILIRUBIN 0.5 mg/dL (0.2-1.0); TOTAL PROTEIN 6.3 g/dL (6.4-8.2)
[2019-08-05] MEDS ORDERED: cefTRIAXone SODIUM 1 GM VIAL ONE (21:38)
[2019-08-05] MEDS ORDERED: IV NORMAL SALINE 50ML 50 ML ONE (21:38)
[2019-08-05 21:45] LABS: BARBITURATES NEG (NEG); BENZODIAZEPINES NEG (NEG); CANNABINOIDS POS (NEG); COCAINE NEG (NEG); METHADONE NEG (NEG); OPIATES NEG (NEG); PHENCYCLIDINE NEG (NEG)
[2019-08-05] MEDS ORDERED: ACETAMINOPHEN 500 MG TABLET PO ONE ×2 (21:48→22:00)
[2019-08-05 21:50] LABS: AMPHETAMINE/METHAMPHETAMINE NEG (NEG)
[2019-08-05 21:53] VITALS: BP 95/61
--- NOTE | 2019-08-05 21:55 | RAD ---
Exam: Chest 2 views INDICATION: Dizzy, cough TECHNIQUE: Frontal and lateral views the chest Comparisons: None FINDINGS: The cardiomediastinal silhouette and pulmonary vessels are within normal limits. The lung and pleural spaces are clear. IMPRESSION: No acute cardiopulmonary process. Electronically signed by: Sandra Muller MD (08/05/2019 9:52 PM) [id number]
[2019-08-05 22:00] LABS: SEDIMENTATION RATE 5 (0-25)
[2019-08-05 22:09] LABS: BACTERIA,URINE MANY /HPF (0-FEW); BILIRUBIN,URINE NEG (NEG); CLARITY,URINE CLOUDY; COLOR,URINE YELLOW; GLUCOSE,URINE NEG (NEG); NITRITE,URINE POS (NEG); UROBILINOGEN,URINE 0.2 mg/dL (0.2 mg/dL); WBC,URINE 20-40 /HPF (0-4)
[2019-08-05 22:10] LABS: SQUAMOUS EPITHELIAL CELL,UR FEW /LPF
[2019-08-05] MEDS ORDERED: CEPH-264 PO (22:16)
--- NOTE | 2019-08-06 00:40 | EKG ---
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
== END 2019-08-05 22:25 | disposition home or self-care (01) ==
LOC: ER 19:53
DX: R55 Syncope and collapse (principal); M79.7 Fibromyalgia; F17.210 Nicotine dependence, cigarettes, uncomplicated; Z88.1 Allergy status to other antibiotic agents
CPT/HCPCS: 36415; 71046; 80048; 80076; 80307; 81001; 81025; 82550; 82947; 83605; 83735; 83880; 84443; 84484; 85025; 85379; 85610; 85651; 85730; 87040; 87086; 93005; 96361; 96365; 99285; J0696; J7120

== ENCOUNTER 2019-10-29 10:16 | Emergency (ER) | payer OTHER ==
[~2019-10-29] VITALS: Ht 152.4 cm; Wt 77.9 kg
[~2019-10-29 10:16] MED LIST changes: +CEPH-264 PO
[2019-10-29] MEDS ORDERED: IOHEXOL 300 MG/ML 75 ML VIAL. IV ONE ×2 (11:00)
[2019-10-29] MEDS ORDERED: ONDANSETRON PF 4 MG/2 ML VIAL. IVP ONE (11:00)
--- NOTE | 2019-10-29 11:04 | PHYS DOC ---
Past History Past Medical History: Bronchitis, Fibromyalgia, Kidney Stones, Other Past Surgical History: Cholecystectomy, Tubal ligation, Other Additional Past Surgical Histo: HERNIA Smoking: Cigarettes Alcohol Use: Rarely Drug Use: Marijuana General Adult EDM: Chief Complaint: ABDOMINAL PAIN HPI: HPI: 34-year-old female presents with right lower quadrant abdominal pain. She has been having intermittent, sharp pain in this area for about 3 days. The pain is worse with bouncing or walking. When she sits down, it is more of a pressure sensation versus sharp. She has a history of kidney stones but states that this pain feels different. She has had some nausea today and decided she needed to be evaluated. She denies fever chills. She has a history of cholecystectomy and tubal ligation. She still has her appendix. Review of Systems: Review of Systems: Constitutional: Denies fever or chills Eyes: Denies change in visual acuity HENT: Denies nasal congestion or sore throat Respiratory: Denies cough or shortness of breath Cardiovascular: Denies chest pain or edema GI: Right lower quadrant abdominal pain, nausea. : Denies dysuria Musculoskeletal: Right low back pain Integument: Denies rash Neurologic: Denies headache, focal weakness or sensory changes Endocrine: Denies polyuria or polydipsia Lymphatic: Denies swollen glands Psychiatric: Denies depression or anxiety Heart Score: Risk Factors: Risk Factors: DM, Current or recent (<one month) smoker, HTN, HLP, family history of CAD, obesity. Risk Scores: Score 0 - 3: 2.5% MACE over next 6 weeks - Discharge Home Score 4 - 6: 20.3% MACE over next 6 weeks - Admit for Clinical Observation Score 7 - 10: 72.7% MACE over next 6 weeks - Early Invasive Strategies Current Medications: Current Meds: Current Medications Medications (Trade) Dose Ordered Sig/Donna Start Time Stop Time Status Last Admin Dose Admin Iohexol (Omnipaque 300 Mg/ml) 75 ml 1X ONCE 10/29/19 11:00 10/29/19 11:01 UNV Ondansetron HCl (Zofran) 4 mg 1X ONCE 10/29/19 11:00 10/29/19 11:01 DC 10/29/19 10:53 4 MG Allergies: Allergies: Allergies Coded Allergies Type Severity Reaction Last Updated Verified azithromycin Allergy Intermediate 5/17/16 Yes Physical Exam: PE: Constitutional: Well developed, well nourished, no acute distress, non-toxic appearance. [] HENT: Normocephalic, atraumatic, bilateral external ears normal, oropharynx moist, no oral exudates, nose normal. [] Eyes: PERRLA, EOMI, conjunctiva normal, no discharge. [] Neck: Normal range of motion, no tenderness, supple, no stridor. [] Cardiovascular:Heart rate regular rhythm, no murmur [] Lungs & Thorax: Bilateral breath sounds clear to auscultation [] Abdomen: Bowel sounds normal, soft, right lower quadrant tenderness with rebound tenderness, no masses, no pulsatile masses. [] Skin: Warm, dry, no erythema, no rash. [] Back: No tenderness, no CVA tenderness. [] Extremities: No tenderness, no cyanosis, no clubbing, ROM intact, no edema. [] Neurologic: Alert and oriented X 3, normal motor function, normal sensory function, no focal deficits noted. [] Psychologic: Affect normal, judgement normal, mood normal. [] Current Patient Data: Vital Signs: Vital Signs Date Time Temp Pulse Resp B/P (MAP) Pulse Ox O2 Delivery O2 Flow Rate FiO2 15/20 10:25 97.7 63 20 99/62 (74) 98 Room Air EKG: EKG: [] Radiology/Procedures: Radiology/Procedures: [] Impressions: CT abdomen and pelvis with contrast History: Right lower quadrant pain Technique: After the administration of intravenous contrast, CT imaging was performed of the abdomen and pelvis. No oral contrast was given as per request. Multiplanar images are reviewed. Exposure: One or more of the following individualized dose reduction techniques were utilized for this examination: 1. Automated exposure control 2. Adjustment of the mA and/or kV according to patient size 3. Use of iterative reconstruction technique. Comparison: November 30, 2018 Findings: There is no significant abnormality of the visualized lung bases. There is no significant abnormality of the liver, spleen, pancreas, adrenal glands. Both kidneys enhance without hydronephrosis. There is again 0.4-0.5 cm inferior left renal calculus. There has been cholecystectomy. Accurate evaluation of bowel is limited without oral contrast. There is no significant inflammatory change adjacent to the bowel. There is no evidence of bowel obstruction, free fluid, or free air. There is some variable wall prominence of the small bowel. Appendiceal caliber is within normal limits, not associated with new significant adjacent inflammatory-type change. There is again IUD in the uterus. Impression: 1. There is no CT evidence of acute appendicitis. There is some variable wall prominence of the small bowel, could be seen with enteritis in the appropriate clinical setting. 2. There is again small nonobstructive inferior left renal calculus. Electronically signed by: Danie Barber MD (10/29/2019 11:28 AM) [id number] DICTATED AND SIGNED BY: DANIE BARBER MD DATE: 10/29/19 1128 CC: LIOR FRANCIS DO; KEY VIDALES ~ Course & Med Decision Making: Course & Med Decision Making Pertinent Labs and Imaging studies reviewed. (See chart for details) The patient's labs are unremarkable. CT of the abdomen and pelvis is negative for appendicitis. There is some slight inflammation of the small bowel. See official report for more details. Her urinalysis is suggestive of urinary tract infection. I will treat her with a gram of Rocephin in the ED and 3 days of Keflex at home. She is stable for discharge at this time. [] Dragon Disclaimer: Dragon Disclaimer: This electronic medical record was generated, in whole or in part, using a voice recognition dictation system. Departure Departure: Impression: Primary Impression: Urinary tract infection Qualified Codes: N30.01 - Acute cystitis with hematuria Disposition: HOME/RESIDENCE PRIOR TO ADM Condition: STABLE Referrals: KEY VIDALES (PCP) Patient Instructions: Urinary Tract Infection, [id number] Scripts Cephalexin (KEFLEX) 500 Mg Capsule 1 CAP PO TID for UTI for 3 Days, #9 CAP 0 Refills start 10/30/2019 Prov: LIOR FRANCIS DO 10/29/19 Justification of Admission: Justification of Admission: Justification of Admission Dx: No LIOR FRANCIS DO Oct 29, 2019 11:04
[2019-10-29 11:07] LABS: BASO # 0.1 x10^3/uL (0.0-0.2); BASO % 1 % (0-3); EOS # 0.4 x10^3/uL (0.0-0.7); EOS % 5 % (0-3); HEMATOCRIT 44.7 % (36.0-47.0); HEMOGLOBIN 14.8 g/dL (12.0-15.5); LYMPH # 2.6 x10^3/uL (1.0-4.8); LYMPH % 33 % (24-48); MEAN CORPUSCULAR HEMOGLOBIN 31 pg (25-35); MEAN CORPUSCULAR HGB CONC 33 g/dL (31-37); MEAN CORPUSCULAR VOLUME 92 fL (79-100); MONO # 0.5 x10^3/uL (0.0-1.1); MONO % 6 % (0-9); NEUT # 4.4 x10^3uL (1.8-7.7); NEUT % 56 % (31-73); PLATELET COUNT 263 x10^3/uL (140-400); RED BLOOD COUNT 4.87 x10^6/uL (3.50-5.40); RED CELL DISTRIBUTION WIDTH 14.5 % (11.5-14.5); WHITE BLOOD COUNT 7.9 x10^3/uL (4.0-11.0)
[2019-10-29 11:09] LABS: CALCIUM 8.6 mg/dL (8.5-10.1); CREATININE 0.8 mg/dL (0.6-1.0); GFR 82.1; POTASSIUM 4.4 mmol/L (3.5-5.1)
[2019-10-29 11:14] LABS: ALBUMIN 3.3 g/dL (3.4-5.0); TOTAL BILIRUBIN 0.3 mg/dL (0.2-1.0); TOTAL PROTEIN 6.5 g/dL (6.4-8.2)
[2019-10-29 11:21] LABS: BACTERIA,URINE MOD /HPF (0-FEW); BILIRUBIN,URINE NEG (NEG); CLARITY,URINE HAZY; COLOR,URINE YELLOW; GLUCOSE,URINE NEG (NEG); NITRITE,URINE NEG (NEG); SQUAMOUS EPITHELIAL CELL,UR MANY /LPF; UROBILINOGEN,URINE 0.2 mg/dL (0.2 mg/dL); WBC,URINE >40 /HPF (0-4)
--- NOTE | 2019-10-29 11:31 | RAD ---
CT abdomen and pelvis with contrast History: Right lower quadrant pain Technique: After the administration of intravenous contrast, CT imaging was performed of the abdomen and pelvis. No oral contrast was given as per request. Multiplanar images are reviewed. Exposure: One or more of the following individualized dose reduction techniques were utilized for this examination: 1. Automated exposure control 2. Adjustment of the mA and/or kV according to patient size 3. Use of iterative reconstruction technique. Comparison: November 30, 2018 Findings: There is no significant abnormality of the visualized lung bases. There is no significant abnormality of the liver, spleen, pancreas, adrenal glands. Both kidneys enhance without hydronephrosis. There is again 0.4-0.5 cm inferior left renal calculus. There has been cholecystectomy. Accurate evaluation of bowel is limited without oral contrast. There is no significant inflammatory change adjacent to the bowel. There is no evidence of bowel obstruction, free fluid, or free air. There is some variable wall prominence of the small bowel. Appendiceal caliber is within normal limits, not associated with new significant adjacent inflammatory-type change. There is again IUD in the uterus. Impression: 1. There is no CT evidence of acute appendicitis. There is some variable wall prominence of the small bowel, could be seen with enteritis in the appropriate clinical setting. 2. There is again small nonobstructive inferior left renal calculus. Electronically signed by: Sam Griffith MD (10/29/2019 11:28 AM) [id number]
[2019-10-29] MEDS ORDERED: CEPH-264 PO (11:57)
[2019-10-29] MEDS ORDERED: IV NORMAL SALINE 50ML 50 ML ONE (12:02)
[2019-10-29] MEDS ORDERED: cefTRIAXone SODIUM 1 GM VIAL ONE (12:02)
[2019-10-29 12:25] VITALS: BP 101/51
== END 2019-10-29 12:30 | disposition home or self-care (01) ==
LOC: ER 10:16
DX: M54.5 Low back pain (principal); N30.01 Acute cystitis with hematuria; M79.7 Fibromyalgia; Z87.442 Personal history of urinary calculi; Z90.49 Acquired absence of other specified parts of digestive tract; Z98.51 Tubal ligation status; F17.210 Nicotine dependence, cigarettes, uncomplicated; Z88.1 Allergy status to other antibiotic agents
CPT/HCPCS: 36415; 74177; 80053; 81001; 85025; 87086; 96365; 96375; 99285; J0696; J2405; Q9967

== ENCOUNTER 2020-02-13 06:50 | Emergency (ER) | payer OTHER ==
[~2020-02-13] VITALS: Ht 152.4 cm; Wt 88.0 kg
[2020-02-13 07:57] LABS: BASO # 0.1 x10^3/uL (0.0-0.2); BASO % 1 % (0-3); EOS # 0.2 x10^3/uL (0.0-0.7); EOS % 3 % (0-3); HEMATOCRIT 46.3 % (36.0-47.0); HEMOGLOBIN 15.3 g/dL (12.0-15.5); LYMPH # 2.6 x10^3/uL (1.0-4.8); LYMPH % 31 % (24-48); MEAN CORPUSCULAR HEMOGLOBIN 30 pg (25-35); MEAN CORPUSCULAR HGB CONC 33 g/dL (31-37); MEAN CORPUSCULAR VOLUME 91 fL (79-100); MONO # 0.4 x10^3/uL (0.0-1.1); MONO % 5 % (0-9); NEUT # 5.1 x10^3uL (1.8-7.7); NEUT % 61 % (31-73); PLATELET COUNT 290 x10^3/uL (140-400); RED BLOOD COUNT 5.08 x10^6/uL (3.50-5.40); RED CELL DISTRIBUTION WIDTH 13.8 % (11.5-14.5); WHITE BLOOD COUNT 8.4 x10^3/uL (4.0-11.0)
[2020-02-13 08:06] LABS: CALCIUM 9.1 mg/dL (8.5-10.1); CREATININE 0.9 mg/dL (0.6-1.0); GFR 71.7; POTASSIUM 3.9 mmol/L (3.5-5.1)
--- NOTE | 2020-02-13 08:11 | RAD ---
EXAM: CHEST ONE VIEW. HISTORY: Shortness of breath, cough. COMPARISON: 08/05/2019. FINDINGS: A frontal view of the chest is obtained. There are no confluent infiltrates. There is no pneumothorax or pleural effusion. The heart is not enlarged. IMPRESSION: 1. No confluent infiltrates. Electronically signed by: Carina Boyce MD (02/13/2020 8:07 AM) [id number]
[2020-02-13 08:18] LABS: ALBUMIN 3.7 g/dL (3.4-5.0); C REACTIVE PROTEIN 14.4 mg/L (0-3.3); TOTAL BILIRUBIN 1.4 mg/dL (0.2-1.0); TOTAL PROTEIN 7.5 g/dL (6.4-8.2)
--- NOTE | 2020-02-13 08:32 | PHYS DOC ---
Past History Past Medical History: Bronchitis, Fibromyalgia, Kidney Stones, UTI Past Surgical History: Cholecystectomy, Tubal ligation, Other Additional Past Surgical Histo: HERNIA Smoking: Cigarettes Alcohol Use: Rarely Drug Use: Marijuana Adult General Chief Complaint Chief Complaint: COUGH HPI HPI Patient is a 34-year-old female who presents to the emergency room with several hours of cough, chest tightness, fatigue. She states that she recently had a sore throat and at that time was swabbed for COVID and was negative. She returned to work over the next couple of days she was around several people who were coughing and sneezing. She woke up this morning ill. She denies any fevers. She states the chest tightness is worse in the front and is worse anytime she coughs or tries to take a deep breath. She has some mild shortness of breath but is able to walk long distances without stopping. Review of Systems Review of Systems General: Denies fever, chills, sweats.reports fatigue Eyes: Denies drainage, blurred vision, eye redness HENT: Denies rhinorrhea, sore throat, earache Respiratory: Reports cough, shortness of breath, chest tightness Cardiac: Denies edema, palpitations, chest pain GI: Denies abdominal pain, Nausea, vomiting MSK: Denies back pain, neck pain Skin: Denies rash, jaundice Neuro: Denies headache, dizziness Psychiatric: Denies SI/HI Allergies Allergies Allergies Coded Allergies Type Severity Reaction Last Updated Verified azithromycin Allergy Intermediate 02/13/20 Yes Physical Exam Physical Exam General: Awake, alert, NAD. Well Nourished, well hydrated. Cooperative HEENT: Atraumatic, EOMI, PERRL, airway patent, moist oral mucosa Neck: Supple, trachea midline Respiratory: CTA bilaterally, normal effort, no wheezing/crackles, upper airway noise CV: RRR, no murmur, cap refill <2 GI: Soft, nondistended, nontender, no masses MSK: No obvious deformities Skin: Warm, dry, intact Neuro: A&O x3, speech NL, sensory and motor grossly intact, no focal deficits Psych: Normal affect, normal mood, not suicidal or homicidal Current Patient Data Vital Signs Vital Signs Date Time Temp Pulse Resp B/P (MAP) Pulse Ox O2 Delivery O2 Flow Rate FiO2 02/13/20 07:20 98.4 78 18 119/64 (82) 95 Room Air Lab Results Laboratory Tests Test 02/13/20 07:30 White Blood Count 8.4 x10^3/uL (4.0-11.0) Red Blood Count 5.08 x10^6/uL (3.50-5.40) Hemoglobin 15.3 g/dL (12.0-15.5) Hematocrit 46.3 % (36.0-47.0) Mean Corpuscular Volume 91 fL (79-100) Mean Corpuscular Hemoglobin 30 pg (25-35) Mean Corpuscular Hemoglobin Concent 33 g/dL (31-37) Red Cell Distribution Width 13.8 % (11.5-14.5) Platelet Count 290 x10^3/uL (140-400) Neutrophils (%) (Auto) 61 % (31-73) Lymphocytes (%) (Auto) 31 % (24-48) Monocytes (%) (Auto) 5 % (0-9) Eosinophils (%) (Auto) 3 % (0-3) Basophils (%) (Auto) 1 % (0-3) Neutrophils # (Auto) 5.1 x10^3uL (1.8-7.7) Lymphocytes # (Auto) 2.6 x10^3/uL (1.0-4.8) Monocytes # (Auto) 0.4 x10^3/uL (0.0-1.1) Eosinophils # (Auto) 0.2 x10^3/uL (0.0-0.7) Basophils # (Auto) 0.1 x10^3/uL (0.0-0.2) Sodium Level 140 mmol/L (136-145) Potassium Level 3.9 mmol/L (3.5-5.1) Chloride Level 104 mmol/L (98-107) Carbon Dioxide Level 26 mmol/L (21-32) Anion Gap 10 (6-14) Blood Urea Nitrogen 13 mg/dL (7-20) Creatinine 0.9 mg/dL (0.6-1.0) Estimated GFR (Cockcroft-Gault) 71.7 BUN/Creatinine Ratio 14 (6-20) Glucose Level 83 mg/dL (70-99) Calcium Level 9.1 mg/dL (8.5-10.1) Total Bilirubin 1.4 mg/dL (0.2-1.0) H Aspartate Amino Transferase (AST) 18 U/L (15-37) Alanine Aminotransferase (ALT) 19 U/L (14-59) Alkaline Phosphatase 84 U/L (46-116) Lactate Dehydrogenase 187 U/L (81-234) Creatine Kinase 213 U/L (26-192) H Troponin I Quantitative < 0.017 ng/mL (0-0.055) C-Reactive Protein 14.4 mg/L (0-3.3) H JV-Ozd-[id number]-Type Natriuretic Peptide 62 pg/mL (0-124) Total Protein 7.5 g/dL (6.4-8.2) Albumin 3.7 g/dL (3.4-5.0) Albumin/Globulin Ratio 1.0 (1.0-1.7) EKG EKG [] Radiology/Procedures Radiology/Procedures [] Course & Med Decision Making Course & Med Decision Making Pertinent Labs and Imaging studies reviewed. (See chart for details) Patient is a 34-year-old female who presents to the emergency room with cough, shortness of breath, body aches. At this time there is concern for the novel coronavirus 19. Risk stratifying work-up was ordered including chest x-ray, d- dimer, CPK, CRP, LDH, troponin, ferritin, CBC, CMP. Due to concern of COVID-19 I have discussed the importance of quarantining with the patient. I have discussed with them that they should avoid grocery stores, gas stations, pharmacies, work, friends/family's homes. I discussed with him that it is important that they do not expose themselves to anyone else for the next 14 days. Chest x-ray does not show infiltrates at this time and patient will not be treated with empiric antibiotics. I have discussed with the patient the course of the illness and we have discussed strict return precautions. At this time patient does not need admission as they are stable, however it is possible that they may get worse over the next few days and we have discussed the importance of coming back if they develop severe shortness of breath or any other symptoms that they are concerned about. Patient's test results and vitals while in the ED were fully reviewed and discussed with the patient. Patient is stable and at this time does not need admission to the hospital. We have discussed strict return precautions and the importance of following up with their Primary Care Physician. Patient stated understanding and was given an opportunity to ask any questions. Dragon Disclaimer Dragon Disclaimer This electronic medical record was generated, in whole or in part, using a voice recognition dictation system. Departure Departure: Impression: Primary Impression: Suspected 2019 novel coronavirus infection Disposition: HOME/RESIDENCE PRIOR TO ADM Condition: STABLE Referrals: KEY VIDALES (PCP) Patient Instructions: Shortness of Breath, [id number] Additional Instructions: Thank you for visiting [facility]. We appreciate you trusting us with your care. If any additional problems come up please don't hesitate to return to visit us. Follow up with your primary care provider so they can plan additional care if needed and know about the problem that you had today. If symptoms worsen come back to the Emergency Department. Any concerning symptoms that start such as chest pain, shortness of air, weakness or numbness on one side of the body, running high fevers or any other concerning symptoms return to the ER. You have a viral syndrome which may include symptoms like muscle aches, fevers, chills, runny nose, cough, sneezing, sore throat, nausea, vomiting, or diarrhea. One of the potential viruses that you may have is SARS-CoV-2, the virus that causes COVID-19, also known as the Coronavirus. You are just as likely to have a different viral infection such as the common cold, flu, etc. Most patients with the Coronavirus have mild symptoms and recover on their own. Resting, staying hydrated, and sleep based on known cases can be helpful. As of todays visit, you are well enough to go home and treat your symptoms with oral fluids and over the counter medications. Coronavirus testing is not performed on most people with mild symptoms who are being discharged from the emergency department. If Coronavirus testing was performed today the results will not be available for possibly up to 3-4 days. If your result is positive you will be contacted. Please follow the following precautions at home: 1. Stay home except to get medical care. 2. As advised by the CDC, we recommend that you stay in your home and minimize contact with other people. We do not want you to spread the infection. 3. Those who are older or have significant medical issues may have more severe symptoms from this infection. We recommend self-isolation FOR AT LEAST 7 DAYS after your 1st day of symptoms. AFTER you feel better please wait AT LEAST ANOT HER WEEK before returning to regular activities and being around other people. 4. IF you become sicker and have difficulty breathing, chest pain, are unable to eat/drink, severe vomiting, diarrhea, or weakness you may need to return to the Emergency Department. 5. You should restrict activities outside of your home, except for getting medical care. DO NOT go to work, school, or public areas. Avoid using public transportation, ride sharing, or taxis. 6. Separate yourself from other people in your home. You should use a separate bathroom if possible. 7. Avoid sharing personal household items such as dishes, cups, eating utensils, towels, etc. 8. Clean all high touch surfaces every day (door knobs, counter tops, etc). Use a household cleaning spray or wipe per label instructions. 9. Clean your hands often. Wash your hands with soap and water for at least 20 seconds. 10. Cover your mouth and nose when you cough or sneeze. 11. Throw used tissues in the trash and immediately wash your hands. For additional resources please visit the CDC website or the [facility] ([phone]), you may also call 211 for further information. Scripts Benzonatate (TESSALON PERLE) 100 Mg Capsule 1 CAP PO TID PRN for COUGH, #21 CAP Prov: REED JULIO MD 02/13/20 Albuterol Sulfate (VENTOLIN HFA INHALER) 18 Gm Hfa.aer.ad 1 PUFF IH PRN Q4HRS PRN for FOR ASTHMA, #1 INHALER 0 Refills Prov: REED JULIO MD 02/13/20 Methylprednisolone (MEDROL) 4 Mg Tab.ds.pk 1 PKG PO UD for bronchitis, #1 PKG Prov: REED JULIO MD 02/13/20 Justification of Admission: Justification of Admission: Justification of Admission Dx: N/A REED JULIO MD Feb 13, 2020 08:32
[2020-02-13] MEDS ORDERED: BENZ100C PO (08:43)
[2020-02-13] MEDS ORDERED: METH4TAB2 PO (08:43)
[2020-02-13] MEDS ORDERED: ALBU2.5V8 IH (08:43)
[2020-02-13 09:06] VITALS: BP 96/73
--- NOTE | 2020-02-15 14:52 | NUR ---
IP: notified patient of COVID result.
== END 2020-02-13 09:11 | disposition home or self-care (01) ==
LOC: ER 06:50
DX: R07.89 Other chest pain (principal); R53.83 Other fatigue; J02.9 Acute pharyngitis, unspecified; Z20.828 Contact with and (suspected) exposure to other viral communicable diseases; M79.7 Fibromyalgia; Z87.442 Personal history of urinary calculi; Z87.440 Personal history of urinary (tract) infections; Z90.89 Acquired absence of other organs; Z98.51 Tubal ligation status; Z88.1 Allergy status to other antibiotic agents
CPT/HCPCS: 36415; 71045; 80053; 82550; 83615; 83880; 84484; 85025; 86140; 99284; U0003

== ENCOUNTER 2020-04-16 09:39 | Emergency (ER) | payer OTHER ==
[~2020-04-16] VITALS: Ht 152.4 cm; Wt 88.0 kg
[~2020-04-16 09:39] MED LIST changes: +ALBU2.5V8 IH; +BENZ100C PO
[2020-04-16] MEDS ORDERED: METOCLOPRAMIDE HCL 10 MG/2 ML VIAL. ONE (09:51)
[2020-04-16] MEDS ORDERED: KETOROLAC 15 MG/ML VIAL. ONE (09:51)
[2020-04-16] MEDS ORDERED: KETOROLAC 15 MG/ML VIAL. IVP ONE (10:00)
[2020-04-16] MEDS ORDERED: IV NORMAL SALINE 1,000ML 1,000 ML IV ONE (10:00)
[2020-04-16] MEDS ORDERED: METOCLOPRAMIDE HCL 10 MG/2 ML VIAL. IVP ONE (10:00)
--- NOTE | 2020-04-16 10:00 | PHYS DOC ---
Past History Past Medical History: Bronchitis, Fibromyalgia, Kidney Stones, UTI Past Surgical History: Cholecystectomy, Tubal ligation, Other Additional Past Surgical Histo: HERNIA Smoking: Cigarettes Alcohol Use: Rarely Drug Use: Marijuana General Adult EDM: Chief Complaint: FLANK PAIN HPI: HPI: Patient is a 34 year old female who presents with left flank pain that began last night. Patient has a history of kidney stones and infection, and had a stent placed last year. Patient took Tyelonol 2 hours ago without relief. Denies fever, N/V. Denies due to tubal ligation. Review of Systems: Review of Systems: Constitutional: Denies fever or chills Eyes: Denies redness or eye pain HENT: Denies nasal congestion or sore throat Respiratory: Denies cough or shortness of breath Cardiovascular: Denies chest pain or palpitations GI: Denies abdominal pain, nausea, or vomiting. : Denies dysuria or hematuria Musculoskeletal: Denies back pain or joint pain. Reports left flank and groin pain that is beginning to spread to right side. Integument: Denies rash or skin lesions Neurologic: Denies headache, focal weakness or sensory changes Complete systems were reviewed and found to be within normal limits, except as documented in this note. Current Medications: Current Meds: Current Medications Medications (Trade) Dose Ordered Sig/Donna Start Time Stop Time Status Last Admin Dose Admin Ketorolac Tromethamine (Toradol 15mg Vial) 15 mg 1X ONCE 04/16/20 10:00 04/16/20 10:01 UNV Metoclopramide HCl (Reglan Vial) 10 mg 1X ONCE 04/16/20 10:00 04/16/20 10:01 UNV Sodium Chloride 1,000 ml @ 1,000 mls/hr 1X ONCE 04/16/20 10:00 04/16/20 10:59 UNV Allergies: Allergies: Allergies Coded Allergies Type Severity Reaction Last Updated Verified azithromycin Allergy Intermediate 02/13/20 Yes Physical Exam: PE: Constitutional: Well developed, well nourished, no acute distress, non-toxic appearance HENT: Normocephalic, atraumatic Eyes: Conjunctiva normal, no discharge Neck: Normal range of motion, no tenderness, supple Lungs & Thorax: No respiratory distress, equal chest rise and fall Abdomen: Soft, no tenderness. Skin: Warm, dry, no erythema, no rash Back: Pain over left flank and groin area, and slight pain at right flank. Extremities: No tenderness, ROM intact, no edema Neurologic: Alert and oriented X 3, normal motor function, normal sensory function, no focal deficits noted Psychologic: Affect normal, judgment normal Radiology/Procedures: Radiology/Procedures: PROCEDURE: CT ABDOMEN PELVIS WO CONTRAST Exam: CT abdomen/pelvis without intravenous contrast Indication: Left flank pain, evaluate for ureteral calculi Comparison: CT abdomen and pelvis 10/29/2019 Technique: Helical CT imaging performed of the abdomen and pelvis without the use of intravenous contrast. Sagittal and coronal reformats were obtained. One or more of the following individualized dose reduction techniques were utilized for this examination: 1. Automated exposure control 2. Adjustment of the mA and/or kV according to patient size 3. Use of iterative reconstruction technique. Findings: Inherently limited evaluation without intravenous contrast. Lower chest: Lung bases are clear. Heart is normal in size. Liver: The liver is normal in size and attenuation. Gallbladder/Biliary Tree: The gallbladder is surgically absent. Bile ducts are normal. Pancreas: Normal. Spleen: Normal. Adrenal Glands: Normal. Kidneys/Ureters/Bladder: Kidneys are normal in size. There is new left hydronephrosis due to a 4 mm calculus is in the proximal left ureter. The distal left ureter is normal. There is no nephrolithiasis. The right kidney, right ureter, and bladder are normal. Reproductive Organs: Uterus is anteverted. An intrauterine device is in appropriate position. No adnexal mass. Stomach, small bowel, and colon: The stomach, small bowel, colon, and appendix are normal. Vasculature: Abdominal aorta and inferior vena cava are normal in caliber. Lymph Nodes: No lymphadenopathy. Peritoneum and retroperitoneum: No free fluid or free air. Bones: No acute osseous abnormality. Miscellaneous: None Impression: New mild left hydronephrosis due to a 4 mm calculus in the proximal left ureter. Electronically signed by: Malika Catalan MD (04/16/2020 10:37 AM) [id number] Course & Med Decision Making: Course & Med Decision Making Patient is a 34 year old female who presents with left flank pain that began last night. Patient has a history of kidney stones and infection, and had a stent placed last year. Imaging and Labs pending. Moreno Disclaimer: Moreno Disclaimer: This electronic medical record was generated, in whole or in part, using a voice recognition dictation system. Departure Departure: Impression: Primary Impression: Kidney stone on left side Disposition: 01 DC HOME SELF CARE/HOMELESS Condition: STABLE Referrals: PCPLUBA (PCP) Patient Instructions: Diet for Kidney Stones, Kidney Stones, [id number] Additional Instructions: May also take over the counter Ibuprofen as needed for pain in addition to prescribed medications. Scripts Ondansetron (ONDANSETRON ODT) 4 Mg Tab.rapdis 1 TAB PO PRN Q6-8HRS PRN for NAUSEA, #16 TAB Prov: ELISA DILLON DO 04/16/20 Oxycodone HCl/Acetaminophen (Percocet 5-325 mg Tablet) 1 Each Tablet 0.5-1 TAB PO Q6HRS PRN for PAIN MDD 12 Tablet(s), #10 TAB 0 Refills Prov: ELISA DILLON DO 04/16/20 Tamsulosin Hcl (FLOMAX) 0.4 Mg Cap.er.24h 1 CAP PO DAILY for Kidney stone, #7 CAP Prov: ELISA DILLON DO 04/16/20 ELISA DILLON DO Apr 16, 2020 09:59
[2020-04-16 10:02] VITALS: BP 117/81
[2020-04-16 10:15] LABS: BASO # 0.1 x10^3/uL (0.0-0.2); BASO % 1 % (0-3); EOS # 0.2 x10^3/uL (0.0-0.7); EOS % 2 % (0-3); HEMATOCRIT 48.2 % (36.0-47.0); HEMOGLOBIN 15.8 g/dL (12.0-15.5); LYMPH % 24 % (24-48); MEAN CORPUSCULAR HEMOGLOBIN 30 pg (25-35); MEAN CORPUSCULAR HGB CONC 33 g/dL (31-37); MEAN CORPUSCULAR VOLUME 92 fL (79-100); MONO # 0.6 x10^3/uL (0.0-1.1); MONO % 5 % (0-9); NEUT # 8.7 x10^3uL (1.8-7.7); NEUT % 69 % (31-73); PLATELET COUNT 323 x10^3/uL (140-400); RED BLOOD COUNT 5.22 x10^6/uL (3.50-5.40); WHITE BLOOD COUNT 12.6 x10^3/uL (4.0-11.0)
[2020-04-16 10:31] LABS: CALCIUM 8.6 mg/dL (8.5-10.1); CREATININE 0.8 mg/dL (0.6-1.0); GFR 82.1; POTASSIUM 4.5 mmol/L (3.5-5.1)
--- NOTE | 2020-04-16 10:44 | RAD ---
Exam: CT abdomen/pelvis without intravenous contrast Indication: Left flank pain, evaluate for ureteral calculi Comparison: CT abdomen and pelvis 10/29/2019 Technique: Helical CT imaging performed of the abdomen and pelvis without the use of intravenous contrast. Sagittal and coronal reformats were obtained. One or more of the following individualized dose reduction techniques were utilized for this examination: 1. Automated exposure control 2. Adjustment of the mA and/or kV according to patient size 3. Use of iterative reconstruction technique. Findings: Inherently limited evaluation without intravenous contrast. Lower chest: Lung bases are clear. Heart is normal in size. Liver: The liver is normal in size and attenuation. Gallbladder/Biliary Tree: The gallbladder is surgically absent. Bile ducts are normal. Pancreas: Normal. Spleen: Normal. Adrenal Glands: Normal. Kidneys/Ureters/Bladder: Kidneys are normal in size. There is new left hydronephrosis due to a 4 mm calculus is in the proximal left ureter. The distal left ureter is normal. There is no nephrolithiasis. The right kidney, right ureter, and bladder are normal. Reproductive Organs: Uterus is anteverted. An intrauterine device is in appropriate position. No adnexal mass. Stomach, small bowel, and colon: The stomach, small bowel, colon, and appendix are normal. Vasculature: Abdominal aorta and inferior vena cava are normal in caliber. Lymph Nodes: No lymphadenopathy. Peritoneum and retroperitoneum: No free fluid or free air. Bones: No acute osseous abnormality. Miscellaneous: None Impression: New mild left hydronephrosis due to a 4 mm calculus in the proximal left ureter. Electronically signed by: Malika Catalan MD (04/16/2020 10:37 AM) [id number]
[2020-04-16 10:50] LABS: ALBUMIN 3.7 g/dL (3.4-5.0); TOTAL BILIRUBIN 0.4 mg/dL (0.2-1.0); TOTAL PROTEIN 7.3 g/dL (6.4-8.2)
[2020-04-16] MEDS ORDERED: TAMSULOSIN 0.4 MG CAP.ER.24H. PO ONE (11:00)
[2020-04-16 11:50] LABS: BILIRUBIN,URINE NEG (NEG); CLARITY,URINE CLEAR; COLOR,URINE YELLOW; GLUCOSE,URINE NEG (NEG)
[2020-04-16 11:51] LABS: BACTERIA,URINE 0 /HPF (0-FEW); NITRITE,URINE NEG (NEG); SQUAMOUS EPITHELIAL CELL,UR FEW /LPF; UROBILINOGEN,URINE 0.2 mg/dL (0.2 mg/dL)
[2020-04-16] MEDS ORDERED: ONDA4TAB12 PO (12:07)
[2020-04-16] MEDS ORDERED: OXYC-325 PO (12:07)
[2020-04-16] MEDS ORDERED: TAMS0.4C97 PO (12:07)
== END 2020-04-16 12:17 | disposition home or self-care (01) ==
LOC: ER 09:39
DX: N13.2 Hydronephrosis with renal and ureteral calculous obstruction (principal); M79.7 Fibromyalgia; F17.210 Nicotine dependence, cigarettes, uncomplicated; Z87.440 Personal history of urinary (tract) infections; Z90.49 Acquired absence of other specified parts of digestive tract; Z87.442 Personal history of urinary calculi; Z98.51 Tubal ligation status; Z88.1 Allergy status to other antibiotic agents
CPT/HCPCS: 36415; 74176; 80053; 81001; 83690; 85025; 96361; 96374; 96375; 99284; J1885; J2765; J3010; J7030

== ENCOUNTER 2020-06-03 01:55 | Emergency (ER) | payer OTHER ==
[~2020-06-03] VITALS: Ht 152.4 cm; Wt 88.0 kg
[~2020-06-03 01:55] MED LIST changes: +ONDA4TAB12 PO; +OXYC-325 PO; +TAMS0.4C97 PO
--- NOTE | 2020-06-03 02:17 | PHYS DOC ---
Past History Past Medical History: Bronchitis, Fibromyalgia, Kidney Stones, UTI Past Surgical History: Cholecystectomy, Tubal ligation, Other Additional Past Surgical Histo: HERNIA Smoking: Cigarettes Alcohol Use: Rarely Drug Use: Marijuana Adult General Chief Complaint Chief Complaint: ABDOMINAL PAIN HPI HPI Patient is a 34-year-old female with a past medical history significant for left-sided renal lithiasis who presents with left-sided flank pain. States that it started this evening while at work, pain is 7 out of 10, sharp in nature. States she has had some nausea but no vomiting. Denies any recent travel, traumas, fevers, chest pain, shortness of breath, abdominal pain, dysuria, hematuria or blood in stool. Review of Systems Review of Systems Review of systems otherwise unremarkable except noted in HPI. Allergies Allergies Allergies Coded Allergies Type Severity Reaction Last Updated Verified azithromycin Allergy Intermediate 02/13/20 Yes Physical Exam Physical Exam Constitutional: Well developed, well nourished, no acute distress, non-toxic appearance. [] HENT: Normocephalic, atraumatic, Eyes: conjunctiva normal, no discharge. [] Cardiovascular:Heart rate regular rhythm, no murmur [] Lungs & Thorax: Bilateral breath sounds clear to auscultation [] Abdomen: Bowel sounds normal, soft, no tenderness, no masses, no pulsatile masses. [] Skin: Warm, dry, no erythema, no rash. [] Back: left CVA tenderness. [] Extremities: No tenderness, no cyanosis, no clubbing, ROM intact, no edema. [] Neurologic: Alert and oriented X 3, normal motor function, normal sensory f unction, no focal deficits noted. [] Psychologic: Affect normal, judgement normal, mood normal. [] Current Patient Data Lab Results Laboratory Tests Test 06/03/20 02:30 06/03/20 02:40 06/03/20 03:00 Urine Collection Type Unknown Urine Color Yellow Urine Clarity Cloudy Urine pH 6.0 Urine Specific A[place] >=1.030 Urine Protein >100 mg/dl (NEG-TRACE) Urine Glucose (UA) Neg mg/dL (NEG) Urine Ketones (Stick) Trace mg/dL (NEG) Urine Blood Large (NEG) Urine Nitrite Pos (NEG) Urine Bilirubin Neg (NEG) Urine Urobilinogen Dipstick 1.0 mg/dL (0.2 mg/dL) Urine Leukocyte Esterase Small (NEG) Urine RBC >40 /HPF (0-2) Urine WBC >40 /HPF (0-4) Urine Squamous Epithelial Cells Mod /LPF Urine Bacteria Mod /HPF (0-FEW) Bedside Urine HCG, Qualitative hcg negative (Negative) White Blood Count 12.1 x10^3/uL (4.0-11.0) Red Blood Count 4.80 x10^6/uL (3.50-5.40) Hemoglobin 14.5 g/dL (12.0-15.5) Hematocrit 43.3 % (36.0-47.0) Mean Corpuscular Volume 90 fL (79-100) Mean Corpuscular Hemoglobin 30 pg (25-35) Mean Corpuscular Hemoglobin Concent 33 g/dL (31-37) Red Cell Distribution Width 13.3 % (11.5-14.5) Platelet Count 267 x10^3/uL (140-400) Neutrophils (%) (Auto) 62 % (31-73) Lymphocytes (%) (Auto) 28 % (24-48) Monocytes (%) (Auto) 6 % (0-9) Eosinophils (%) (Auto) 3 % (0-3) Basophils (%) (Auto) 1 % (0-3) Neutrophils # (Auto) 7.5 x10^3uL (1.8-7.7) Lymphocytes # (Auto) 3.4 x10^3/uL (1.0-4.8) Monocytes # (Auto) 0.7 x10^3/uL (0.0-1.1) Eosinophils # (Auto) 0.3 x10^3/uL (0.0-0.7) Basophils # (Auto) 0.1 x10^3/uL (0.0-0.2) Sodium Level 139 mmol/L (136-145) Potassium Level 3.6 mmol/L (3.5-5.1) Chloride Level 104 mmol/L (98-107) Carbon Dioxide Level 25 mmol/L (21-32) Anion Gap 10 (6-14) Blood Urea Nitrogen 13 mg/dL (7-20) Creatinine 0.8 mg/dL (0.6-1.0) Estimated GFR (Cockcroft-Gault) 82.1 BUN/Creatinine Ratio 16 (6-20) Glucose Level 86 mg/dL (70-99) Calcium Level 8.1 mg/dL (8.5-10.1) Total Bilirubin 0.4 mg/dL (0.2-1.0) Aspartate Amino Transf (AST/SGOT) 10 U/L (15-37) Alanine Aminotransferase (ALT/SGPT) 17 U/L (14-59) Alkaline Phosphatase 69 U/L (46-116) Total Protein 6.7 g/dL (6.4-8.2) Albumin 3.4 g/dL (3.4-5.0) Albumin/Globulin Ratio 1.0 (1.0-1.7) Lipase 68 U/L (73-393) EKG EKG [] Radiology/Procedures Radiology/Procedures []Impression: Unchanged mild left hydroureteronephrosis due to a 5 mm calculus that is now in the distal left ureter. Electronically signed by: Malika Catalan MD (06/03/2020 3:48 AM) [id number] Heart Score Risk Factors: Risk Factors: DM, Current or recent (<one month) smoker, HTN, HLP, family history of CAD, obesity. Risk Scores: Risk Factors: DM, Current or recent (<one month) smoker, HTN, HLP, family history of CAD, obesity. Course & Med Decision Making Course & Med Decision Making Patient is a 34-year-old female presents with left-sided flank pain associated with nausea and history of left-sided renal lithiasis Vital signs not concerning. Physical exam noted above. Patient placed on the monitor. Given Zofran for nausea. Given fentanyl for pain. Laboratory analysis notable for leukocytosis. Urine notable for hematuria, leukocyte esterase and nitrite. Given 1 g of Rocephin. Imaging notable for the same size stone but now in the distal ureter instead of the proximal ureter. No change in hydronephrosis. No tachycardia, no fever and normal creatinine. Pain controlled. Nausea controlled. Discussed findings with patient and gave an approximate statistical timeline for passage of the stone. Advised to take her antibiotics as prescribed. Advised to take her pain medication as prescribed, with which she can also add ibuprofen and Flomax. Advised to strain her urine with a strainer she was given. Advise d to follow-up with primary care physician to update on ED visit and return to the ED with new or concerning symptoms. Patient grateful, verbalized understanding and agreed with plan of discharge. [] Dragon Disclaimer Dragon Disclaimer This electronic medical record was generated, in whole or in part, using a voice recognition dictation system. Departure Departure: Disposition: 01 DC HOME SELF CARE/HOMELESS Condition: IMPROVED Referrals: PCPLUBA (PCP) Patient Instructions: Diet for Kidney Stones Scripts Tamsulosin Hcl (FLOMAX) 0.4 Mg Cap.er.24h 1 CAP PO DAILY for kidney stone for 10 Days, #10 CAP 11 Refills Prov: CEZAR JONES MD 06/03/20 Cephalexin (CEPHALEXIN) 500 Mg Capsule 1 CAP PO TID for uti for 7 Days, #21 CAP Prov: CEZAR JONES MD 06/03/20 Hydrocodone Bit/Acetaminophen (HYDROCODONE-APAP 5-325 ) 1 Each Tablet 1 TAB PO TID PRN for PAIN for 5 Days, #15 TAB 0 Refills Prov: CEZAR JONES MD 06/03/20 CEZAR JONES MD Jun 03, 2020 02:17
[2020-06-03 02:58] LABS: BILIRUBIN,URINE NEG (NEG); CLARITY,URINE CLOUDY; COLOR,URINE YELLOW; GLUCOSE,URINE NEG (NEG); NITRITE,URINE POS (NEG)
[2020-06-03 02:59] LABS: BACTERIA,URINE MOD /HPF (0-FEW); RBC,URINE >40 /HPF (0-2); SQUAMOUS EPITHELIAL CELL,UR MOD /LPF; WBC,URINE >40 /HPF (0-4)
[2020-06-03 03:16] LABS: BASO # 0.1 x10^3/uL (0.0-0.2); BASO % 1 % (0-3); EOS # 0.3 x10^3/uL (0.0-0.7); EOS % 3 % (0-3); HEMATOCRIT 43.3 % (36.0-47.0); HEMOGLOBIN 14.5 g/dL (12.0-15.5); LYMPH # 3.4 x10^3/uL (1.0-4.8); LYMPH % 28 % (24-48); MEAN CORPUSCULAR HEMOGLOBIN 30 pg (25-35); MEAN CORPUSCULAR HGB CONC 33 g/dL (31-37); MEAN CORPUSCULAR VOLUME 90 fL (79-100); MONO # 0.7 x10^3/uL (0.0-1.1); MONO % 6 % (0-9); NEUT # 7.5 x10^3uL (1.8-7.7); NEUT % 62 % (31-73); PLATELET COUNT 267 x10^3/uL (140-400); RED CELL DISTRIBUTION WIDTH 13.3 % (11.5-14.5); WHITE BLOOD COUNT 12.1 x10^3/uL (4.0-11.0)
[2020-06-03 03:27] LABS: CALCIUM 8.1 mg/dL (8.5-10.1); CREATININE 0.8 mg/dL (0.6-1.0); GFR 82.1; POTASSIUM 3.6 mmol/L (3.5-5.1)
[2020-06-03 03:34] LABS: ALBUMIN 3.4 g/dL (3.4-5.0); TOTAL BILIRUBIN 0.4 mg/dL (0.2-1.0); TOTAL PROTEIN 6.7 g/dL (6.4-8.2)
[2020-06-03] MEDS ORDERED: IV NORMAL SALINE 50ML 50 ML ONE (03:46)
[2020-06-03] MEDS ORDERED: cefTRIAXone SODIUM 1 GM VIAL ONE (03:46)
--- NOTE | 2020-06-03 03:50 | RAD ---
Exam: CT abdomen/pelvis without contrast Indication: Left flank pain Comparison: CT abdomen pelvis 04/16/2020 Technique: Helical CT imaging performed of the abdomen and pelvis without contrast. Sagittal and ted nal reformats were obtained. One or more of the following individualized dose reduction techniques were utilized for this examinat ion: 1. Automated exposure control 2. Adjustment of the mA and/or kV according to patient size 3. Use of iterative reconstruction technique. Findings: Lower chest: Normal. Liver: Normal. Gallbladder/Biliary Tree: Gallbladder surgically absent. Pancreas: Normal. Spleen: Normal. Adrenal Glands: Normal. Kidneys/Ureters/Bladder: There is mild left hydronephrosis and hydroureter due to a 5 mm calculus in the distal left ureter. The calculus was previously in the proximal ureter. Degree of hydronephrosis has not significantly changed.. Fat stranding along the distal ureters. The right kidney and right ur eter are normal. Bladder is incompletely distended. Reproductive Organs: An intrauterine device is in appropriate position in the uterus. Ovaries are wit hin normal limits. Stomach, small bowel, and colon: The stomach, small bowel, appendix, and colon are normal. Vasculature: Abdominal aorta is normal in caliber. Lymph Nodes: No lymphadenopathy. Peritoneum and retroperitoneum: No free fluid or free air. Bones: No acute osseous abnormality. Impression: Unchanged mild left hydroureteronephrosis due to a 5 mm calculus that is now in the dista l left ureter. Electronically signed by: Malika Catalan MD (06/03/2020 3:48 AM) [id number]
[2020-06-03] MEDS ORDERED: KETOROLAC 15 MG/ML VIAL. IVP ONE (04:00)
[2020-06-03] MEDS ORDERED: CEPH500C PO (04:04)
[2020-06-03] MEDS ORDERED: TAMS0.4C97 PO (04:04)
[2020-06-03] MEDS ORDERED: HYDR-2155 PO (04:04)
[2020-06-03 04:06] VITALS: BP 139/71
== END 2020-06-03 04:20 | disposition home or self-care (01) ==
LOC: ER 01:55
DX: R10.9 Unspecified abdominal pain (principal); R11.0 Nausea; M79.7 Fibromyalgia; F17.210 Nicotine dependence, cigarettes, uncomplicated; Z87.442 Personal history of urinary calculi; Z87.440 Personal history of urinary (tract) infections; Z90.49 Acquired absence of other specified parts of digestive tract; Z98.51 Tubal ligation status; Z88.1 Allergy status to other antibiotic agents
CPT/HCPCS: 36415; 74176; 80053; 81001; 81025; 83690; 85025; 87077; 87086; 87186; 96365; 96375; 96376; 99284; J0696; J1885; J3010

== ENCOUNTER 2020-06-14 10:37 | Emergency (ER) | payer OTHER ==
[~2020-06-14] VITALS: Ht 152.4 cm; Wt 82.0 kg
[~2020-06-14 10:37] MED LIST changes: +CEPH500C PO; +HYDR-2155 PO
[2020-06-14] MEDS ORDERED: ONDANSETRON PF 4 MG/2 ML VIAL. IVP ONE (11:00)
[2020-06-14] MEDS ORDERED: IV NORMAL SALINE 1,000ML 1,000 ML IV ONE (11:00)
[2020-06-14] MEDS ORDERED: KETOROLAC 30 MG/ML VIAL. IVP ONE (11:15)
--- NOTE | 2020-06-14 11:19 | PHYS DOC ---
Past History Past Medical History: Bronchitis, Fibromyalgia, Kidney Stones, UTI Past Surgical History: Cholecystectomy, Tubal ligation, Other Additional Past Surgical Histo: HERNIA Smoking: Cigarettes Alcohol Use: None Drug Use: Marijuana Adult General Chief Complaint Chief Complaint: ABDOMINAL PAIN [facility] HPI Patient is a 34-year-old female who presents to the emergency room complaining of left-sided flank pain. Patient first developed this pain in April. At that time she had a 5 mm kidney stone. She reported back to the emergency room 10 days ago for the same pain where she still had the same 4 mm stone that had moved distally. At that time the physician wrote her for Flomax which she did not fern picker. She has not called the urologist and made a follow-up appointment. She states that the pain got better for couple of days and then started again last night. She has had some vomiting. She denies any fever. She tried to take hydrocodone at home without any relief of pain. She states that the urologist is at and that is too far to go so she has not tried to make a follow-up appointment with them. Review of Systems Review of Systems Complete ROS is negative unless otherwise documented in HPI Current Medications Current Medications Current Medications Medications (Trade) Dose Ordered Sig/Donna Start Time Stop Time Status Last Admin Dose Admin Ketorolac Tromethamine (Toradol 30mg Vial) 30 mg 1X ONCE 06/14/20 11:15 06/14/20 11:16 UNV Ondansetron HCl (Zofran) 4 mg 1X ONCE 06/14/20 11:00 06/14/20 11:03 DC 06/14/20 11:11 4 MG Sodium Chloride 1,000 ml @ 1,000 mls/hr 1X ONCE 06/14/20 11:00 06/14/20 11:59 06/14/20 11:11 1,000 MLS/HR Allergies Allergies Allergies Coded Allergies Type Severity Reaction Last Updated Verified azithromycin Allergy Intermediate 06/14/20 Yes Physical Exam Physical Exam General: Awake, alert, mild distress. Well Nourished, well hydrated. Cooperative HEENT: Atraumatic, EOMI, PERRL, airway patent, moist oral mucosa Neck: Supple, trachea midline Respiratory: CTA bilaterally, normal effort, no wheezing/crackles CV: RRR, no murmur, cap refill <2 GI: Soft, nondistended, left-sided tenderness, no masses MSK: No obvious deformities Skin: Warm, dry, intact Neuro: A&O x3, speech NL, sensory and motor grossly intact, no focal deficits Psych: Anxious, not suicidal or homicidal Current Patient Data Vital Signs Vital Signs Date Time Temp Pulse Resp B/P (MAP) Pulse Ox O2 Delivery O2 Flow Rate FiO2 06/14/20 10:46 97.0 91 28 130/70 (90) 98 Room Air EKG EKG [] Radiology/Procedures Radiology/Procedures [] Heart Score Risk Factors: Risk Factors: DM, Current or recent (<one month) smoker, HTN, HLP, family history of CAD, obesity. Risk Scores: Risk Factors: DM, Current or recent (<one month) smoker, HTN, HLP, family history of CAD, obesity. Course & Med Decision Making Course & Med Decision Making Pertinent Labs and Imaging studies reviewed. (See chart for details) Patient is a 34-year-old female who presents to the emergency room complaining of 12 hours of left-sided flank pain with vomiting. Patient had a known kidney stone and it is unclear at this time whether or not she passed the kidney stone. She has not followed up with the urologist. We will need to repeat the CT scan to evaluate whether the kidney stone is passed. Urine and basic labs were ordered. CT shows impacted stone with hydroureter and hydronephrosis. UA is suggestive of a UTI making infected kidney stone a concern. Patient discussed with Niru Canales who will accept her for urology consultation. Dragon Disclaimer Dragon Disclaimer This electronic medical record was generated, in whole or in part, using a voice recognition dictation system. Departure Departure: Impression: Primary Impression: Hydronephrosis with renal and ureteral calculous obstruction Additional Impression: UTI (urinary tract infection) Disposition: 02 DC/TRF OTHER SHORT TERM HOS Condition: STABLE Referrals: PCP,NO (PCP) Problem Qualifiers REED JULIO MD Jun 14, 2020 11:19
[2020-06-14 11:23] LABS: BASO # 0.1 x10^3/uL (0.0-0.2); BASO % 0 % (0-3); EOS % 0 % (0-3); HEMOGLOBIN 15.4 g/dL (12.0-15.5); LYMPH # 1.5 x10^3/uL (1.0-4.8); LYMPH % 7 % (24-48); MEAN CORPUSCULAR HEMOGLOBIN 30 pg (25-35); MEAN CORPUSCULAR HGB CONC 33 g/dL (31-37); MEAN CORPUSCULAR VOLUME 92 fL (79-100); MONO # 0.7 x10^3/uL (0.0-1.1); MONO % 3 % (0-9); NEUT # 18.7 x10^3uL (1.8-7.7); NEUT % 89 % (31-73); PLATELET COUNT 321 x10^3/uL (140-400); RED BLOOD COUNT 5.12 x10^6/uL (3.50-5.40); RED CELL DISTRIBUTION WIDTH 13.5 % (11.5-14.5); WHITE BLOOD COUNT 20.9 x10^3/uL (4.0-11.0)
[2020-06-14 11:27] LABS: CALCIUM 8.9 mg/dL (8.5-10.1); GFR 63.5; POTASSIUM 4.3 mmol/L (3.5-5.1)
--- NOTE | 2020-06-14 12:00 | RAD ---
EXAM: Abdomen and pelvis CT without intravenous contrast. HISTORY: Pain. Vomiting. TECHNIQUE: Computed tomographic images of the abdomen and pelvis were obtained without contrast. Mult iplanar reformatting was performed. *One or more of the following individualized dose reduction techniques were utilized for this examina tion: 1. Automated exposure control. 2. Adjustment of the mA and/or kV according to patient size. 3. Use of iterative reconstruction technique. COMPARISON: 06/03/2020. FINDINGS: Evaluation of the lower thorax demonstrates no infiltrate, pleural effusion or pneumothorax . The heart is normal in size. No hepatic lesion is seen. The gallbladder is surgically absent. The p ancreas, spleen and adrenal glands are unremarkable. There is moderate to severe right hydronephrosis and hydroureter extending to a 7 mm stone at the lef t ureterovesical junction. There has been distal transit of the stone compared to the prior study. Th ere is increasing perinephric and periureteral stranding due to obstructive uropathy. No additional r enal or ureteral stone is seen. There is no appendicitis. There is no bowel obstruction. There is no abnormal bowel wall thickening. There is an IUD within the endometrial cavity. The ovaries are unremarkable. The aorta is normal in c aliber. There is no lymphadenopathy. There is no suspicious osseous lesion. There is lumbar hyperlord osis. IMPRESSION: Moderate to severe left hydronephrosis and hydroureter secondary to a 7 mm ureterovesica l junction stone. The degree of obstruction has slightly increased compared to the prior study and ferguson s been distal transit of the stone compared to the prior study. Electronically signed by: Kathy Garcia MD (06/14/2020 11:57 AM) [facility]
[2020-06-14] MEDS ORDERED: MORPHINE SULFATE 4 MG/ML DISP.SYRIN. IV ONE ×2 (12:45→13:45)
[2020-06-14] MEDS ORDERED: MORPHINE SULFATE 4 MG/ML DISP.SYRIN. ONE (12:52)
[2020-06-14 13:05] LABS: BACTERIA,URINE MOD /HPF (0-FEW); BILIRUBIN,URINE NEG (NEG); CLARITY,URINE HAZY; COLOR,URINE YELLOW; GLUCOSE,URINE NEG (NEG); NITRITE,URINE POS (NEG); SQUAMOUS EPITHELIAL CELL,UR FEW /LPF; UROBILINOGEN,URINE 0.2 mg/dL (0.2 mg/dL); WBC,URINE 20-40 /HPF (0-4)
[2020-06-14] MEDS ORDERED: cefTRIAXone SODIUM 1 GM VIAL ONE (13:59)
[2020-06-14] MEDS ORDERED: IV NORMAL SALINE 50ML 50 ML ONE (13:59)
[2020-06-14 14:15] LABS: % BANDS 2 % (0-9); % EOS 1 % (0-5); % LYMPHS 8 % (24-48); % MONOS 1 % (0-10); % SEGS 88 % (35-66); PLT ESTIMATE ADEQUATE (ADEQUATE)
[2020-06-14 16:19] VITALS: BP 118/73
== END 2020-06-14 16:25 | disposition short-term general hospital (02) ==
LOC: ER 10:37
DX: N13.2 Hydronephrosis with renal and ureteral calculous obstruction (principal); N39.0 Urinary tract infection, site not specified; M79.7 Fibromyalgia; F17.210 Nicotine dependence, cigarettes, uncomplicated; Z87.440 Personal history of urinary (tract) infections; Z87.442 Personal history of urinary calculi; Z90.49 Acquired absence of other specified parts of digestive tract; Z98.51 Tubal ligation status; Z88.1 Allergy status to other antibiotic agents
CPT/HCPCS: 36415; 74176; 80048; 81001; 81025; 85007; 85025; 87086; 96361; 96365; 96375; 99285; J0696; J1885; J2270; J2405; J7030

== ENCOUNTER 2020-08-17 23:32 | Emergency (ER) | payer OTHER ==
[~2020-08-17] VITALS: Ht 152.4 cm; Wt 81.0 kg
--- NOTE | 2020-08-18 00:22 | PHYS DOC ---
Past History Past Medical History: Bronchitis, Fibromyalgia, Kidney Stones, UTI Past Surgical History: Cholecystectomy, Tubal ligation, Other Additional Past Surgical Histo: HERNIA Smoking: Cigarettes Alcohol Use: None Drug Use: Marijuana General Adult EDM: Chief Complaint: EARACHE/EAR PAIN HPI: HPI: ".. Both my ears hurt..the Rt. is worse..." Patient is a 35 year old female who presents with above hx and complaints bilateral otitis. Patient does have fluid behind both TMs. Right side obviously more inflamed. Patient denies any recent travel. Patient denies any immunosuppression. Patient does not generally follow up with primary care but uses the emergency department for her medical needs. Patient does smoke marijuana and tobacco. Patient has past medical history of asthma, bronchitis, fibromyalgia, kidney stones, urinary tract infections. Patient in past has follow-up with for care. Patient does have a history of noncompliance both with medications and appointment follow-ups. Review of Systems: Review of Systems: Constitutional: Denies fever or chills Eyes: Denies change in visual acuity HENT: Complains of nasal congestion, sore throat and bilateral ear pain Respiratory: Denies cough or shortness of breath Cardiovascular: Denies chest pain or edema GI: Denies abdominal pain, nausea, vomiting, bloody stools or diarrhea : Denies dysuria Musculoskeletal: Denies back pain or joint pain Integument: Denies rash Neurologic: Denies headache, focal weakness or sensory changes Endocrine: Denies polyuria or polydipsia Lymphatic: Denies swollen glands Psychiatric: Denies depression or anxiety Family History: Family History: Noncontributory to presentation Current Medications: Current Meds: See nursing for home meds Allergies: Allergies: Allergies Coded Allergies Type Severity Reaction Last Updated Verified azithromycin Allergy Intermediate 06/14/20 Yes Physical Exam: PE: Constitutional: Moderate acute distress, non-toxic appearance. [] HENT: Normocephalic, atraumatic, bilateral external ears some excoriation from Q-tip use, does have fluid behind both TMs more erythema on right TM, oropharynx moist with mild injection, no oral exudates, nose slightly swollen turbinates with clear rhinorrhea Eyes: PERRLA, EOMI, conjunctiva normal, no discharge. [] Neck: Normal range of motion, no tenderness, supple, no stridor. [] Cardiovascular:Heart rate regular rhythm, no murmur [] Lungs & Thorax: Bilateral breath sounds equal apex with scattered wheezes auscultation [] Abdomen: Bowel sounds normal, soft, no tenderness, no masses, no pulsatile masses. Obese. Old surgery scars. Skin: Warm, dry, no erythema, no rash. [] Back: No tenderness, no CVA tenderness. [] Extremities: No tenderness, no cyanosis, no clubbing, ROM intact, no edema. [] Neurologic: Alert and oriented X 3, normal motor function, normal sensory function, no focal deficits noted. [] Psychologic: Affect anxious, judgement normal, mood normal. [] EKG: EKG: [] Radiology/Procedures: Radiology/Procedures: [] Heart Score: C/O Chest Pain: N/A Risk Factors: Risk Factors: DM, Current or recent (<one month) smoker, HTN, HLP, family history of CAD, obesity. Risk Scores: Score 0 - 3: 2.5% MACE over next 6 weeks - Discharge Home Score 4 - 6: 20.3% MACE over next 6 weeks - Admit for Clinical Observation Score 7 - 10: 72.7% MACE over next 6 weeks - Early Invasive Strategies Course & Med Decision Making: Course & Med Decision Making Pertinent Labs and Imaging studies reviewed. (See chart for details) Patient not to use Q-tips in ears. Patient take Keflex 500 mg 3 times a day x7 days. Patient may use Benadryl 50 mg at 4 times a day to help for decongestant and removal of fluid behind TMs. Courage patient stop smoking. Patient follow- up primary care. Return if any concerns. Impression: 1. Upper respiratory infection 2. Bilateral otitis media 3. Tobacco and marijuana use [] Dragon Disclaimer: Dragon Disclaimer: This electronic medical record was generated, in whole or in part, using a voice recognition dictation system. Departure Departure: Referrals: PCP,UNKNOWN (PCP) Scripts Cephalexin (KEFLEX) 750 Mg Capsule 500 MG PO TID for otitis, #30 CAP Prov: CHEL SOLIS MD 08/18/20 [place] Disclaimer This chart was dictated in whole or in part using Voice Recognition software in a busy, high-work load, and often noisy Emergency Department environment. It may contain unintended and wholly unrecognized errors or omissions. CHEL SOLIS MD Aug 18, 2020 00:22
[2020-08-18 00:55] VITALS: BP 111/66
[2020-08-18] MEDS ORDERED: CEPH750C9 PO (00:59)
[2020-08-18] MEDS ORDERED: HYDROcodon/IBUPROFEN 7.5/200MG 1 TAB TABLET PO ONE (01:00)
[2020-08-18] MEDS ORDERED: diphenhydrAMINE HCL 25 MG CAPSULE PO ONE (01:00)
[2020-08-18] MEDS ORDERED: CEPHALEXIN 250 MG CAPSULE PO ONE (01:00)
== END 2020-08-18 00:55 | disposition home or self-care (01) ==
LOC: ER 23:32
DX: J06.9 Acute upper respiratory infection, unspecified (principal); H66.93 Otitis media, unspecified, bilateral; M79.7 Fibromyalgia; F17.210 Nicotine dependence, cigarettes, uncomplicated; Z87.442 Personal history of urinary calculi; Z87.440 Personal history of urinary (tract) infections; Z90.49 Acquired absence of other specified parts of digestive tract; Z98.51 Tubal ligation status; Z88.1 Allergy status to other antibiotic agents
CPT/HCPCS: 99284; Q0163

== ENCOUNTER 2020-09-20 13:05 | Emergency (ER) | payer OTHER ==
[~2020-09-20] VITALS: Ht 152.4 cm; Wt 81.0 kg
[2020-09-20 13:05] VITALS: BP 107/74
[~2020-09-20 13:05] MED LIST changes: +CEPH750C9 PO
[2020-09-20] MEDS ORDERED: CYCLOBENZAPRINE 10 MG TABLET. PO ONE (13:30)
[2020-09-20] MEDS ORDERED: IBUPROFEN 600 MG TABLET. PO ONE (13:30)
--- NOTE | 2020-09-20 13:47 | PHYS DOC ---
Past History Past Medical History: Anxiety, Depression, Fibromyalgia, Kidney Stones Additional Past Medical Histor: Gastritis Past Surgical History: Cholecystectomy, Tubal ligation Additional Past Surgical Histo: hernia repair, right wrist surgery Smoking: Cigarettes Alcohol Use: Rarely Drug Use: Marijuana Adult General Chief Complaint Chief Complaint: Neck Pain HPI HPI Patient is a 35-year-old female reports she woke up this morning feeling fine however as the morning progressed she noticed some pain in her low neck area, patient states that she went to touch it and had an immediate experience of extreme pain. Patient states she took 2 tablets of Tylenol PM, and had her boyfriend massage the area without pain relief. Patient currently reports her pain a 10/10 on a 1-10 pain scale. Patient states that she does not recall injuring her neck. Patient states that she does not think she slept funny as she woke up with no discomfort. Patient states she has experienced neck discomfort in the same area for over the past several years intermittently. Patient states that she has had to be seen at emergency departments and is usually treated with Flexeril. Patient reports this is the worst pain she has ever had and she fears something is wrong with her neck. Patient denies any recent fever or chills, denies recent illnesses, denies anyone else in her home with the same symptoms that she. Patient states she is allergic to Zithromax, takes no prescription medications at home. Patient reports her last menstrual cycle was 4 years ago when she had her IUD placed. Patient denies any chest pain, cough, chest or nasal congestion. Patient denies abdominal pain, nausea, vomiting, diarrhea or constipation. Patient denies any other physical complaints or physical concerns. Review of Systems Review of Systems 14 body systems of review of systems have been reviewed. See HPI for pertinent positives and negative responses, otherwise all other systems are negative, nonpertinent or noncontributory. Current Medications Current Medications Current Medications Medications (Trade) Dose Ordered Sig/[facility] Start Time Stop Time Status Last Admin Dose Admin Cyclobenzaprine HCl (Flexeril) 10 mg 1X ONCE 09/20/20 13:30 09/20/20 13:31 UNV Ibuprofen (Motrin) 600 mg 1X ONCE 09/20/20 13:30 09/20/20 13:31 UNV Allergies Allergies Allergies Coded Allergies Type Severity Reaction Last Updated Verified azithromycin Allergy Intermediate 06/14/20 Yes Physical Exam Physical Exam Constitutional: Well developed, well nourished, no acute distress, non-toxic hannah earance. 35-year-old female in no apparent distress, appears to move head without an appearance of pain response. HENT: Normocephalic, atraumatic, bilateral external ears normal, oropharynx moist, no oral exudates, nose normal. Oropharynx pink, moist, no infectious process appreciated, no nasal drainage appreciated, no lymphadenopathy of the head or neck. Eyes: PERRLA, EOMI, conjunctiva normal, no discharge. Neck: Normal range of motion, supple, no stridor. Pain to palpation over C6-C7 surfaces, muscle spasm appreciated, no step-offs appreciated, no bruising to the neck appreciated, no crepitus appreciated, no deformities appreciated of the neck. No JVD appreciated. Cardiovascular:Heart rate regular rhythm, no murmur Lungs & Thorax: Bilateral breath sounds clear to auscultation, no adventitious lung sounds appreciated. Abdomen: Bowel sounds normal, soft, no tenderness, no masses, no pulsatile masses. Skin: Warm, dry, no erythema, no rash. Back: No tenderness, no CVA tenderness. No tenderness to palpation along spinal column below C7 area. Extremities: No tenderness, no cyanosis, no clubbing, ROM intact, no edema. Patient moving all extremities without difficulty, denies numbness or tingling to her extremities, distal cap refill is less than 2 seconds, there is no cyanosis appreciated. Neurologic: Alert and oriented X 3, normal motor function, normal sensory function, no focal deficits noted. Psychologic: Affect normal, judgement normal, mood normal. EKG EKG [] Radiology/Procedures Radiology/Procedures []PATIENT: RAMÓN BROWNLEE CACCOUNT: [id number]#: [id number] : 1985 LOCATION: ER AGE: 35 SEX: F EXAM STATUS: REG ER ORD. PHYSICIAN: ELISA MART APRN REASON: SEVERE NECK PAIN PROCEDURE: CT CERVICAL SPINE WO CONTRAST CT cervical spine without contrast: Reason for examination: Severe neck pain. Helical images were obtained through the cervical spine from skull base through the thoracic apices with no contrast administered. Reconstruction was performed in sagittal and coronal planes. Exposure: One or more of the following individualized dose reduction techniques were utilized for this examination: 1. Automated exposure control 2. Adjus tment of the mA and/or kV according to patient size 3. Use of iterative reconstruction technique. The C1 ring is intact. The odontoid process is intact and normally centered between the lateral masses of C1. The cervical vertebral bodies are normally ali gned anteriorly and posteriorly. No acute fracture or subluxation is evident. Posterior elements also appear to be intact. The intervertebral discs are maintained. Prevertebral soft tissues are normal. No spinal stenosis is evident. IMPRESSION: No acute abnormality evident in the cervical spine. Electronically signed by: Lei Perez MD (09/20/2020 1:57 PM) [facility] DICTATED AND SIGNED BY: LEI PEREZ MD DATE: 09/20/20 3305 CC: ELISA MART APRN; PCP,NO ~MTH0 0 Heart Score C/O Chest Pain: No Risk Factors: Risk Factors: DM, Current or recent (<one month) smoker, HTN, HLP, family history of CAD, obesity. Risk Scores: Risk Factors: DM, Current or recent (<one month) smoker, HTN, HLP, family history of CAD, obesity. Course & Med Decision Making Course & Med Decision Making Pertinent Labs and Imaging studies reviewed. (See chart for details) 35-year-old female, vital signs reviewed, presents emergency department concerning nontraumatic neck pain. Patient reports experiencing pain in the same area over several years intermittently, however with reporting the worst pain she has ever experienced a CT of the cervical spine was ordered, there is no nuchal rigidity or meningismus signs, 600 mg ibuprofen p.o. and 10 mg Flexeril ordered, ice pack ordered. Awaiting imaging at this time. CT read negative for acute findings, discussed CT findings with patient, reev aluation of the patient no change in pain status, patient had not received ordered medications yet, awaiting approval from pharmacy at this time for medications to be released to ED nurse to administer to patient. Patient remains nontoxic in appearance, moves head and neck without obvious pain response. Discussed with patient will discharge to home after she receives ordered medications and ice pack. Discussed with patient will give work excuse for Tuesday off to make an appointment with her primary care provider for reevaluation and ongoing pain management of her neck pain. Discussed with patient her primary care provider may determine if an MRI is warranted. Discussed with patient return to emergency department precautions and concerns. Patient gave verbal understanding of discharge home instructions, ice pack use 30 minutes on 30 minutes off, prescription medications used for muscle relaxer at anti-inflammatory for pain control, return to ER precautions or concerns, strict follow-up with primary care this Tuesday, work excuse given, patient was thankful and feels comfortable managing her pain at home, was discharged home without incident. Dragon Disclaimer Dragon Disclaimer This electronic medical record was generated, in whole or in part, using a voice recognition dictation system. Departure Departure: Impression: Primary Impression: Neck pain without injury Disposition: HOME / SELF CARE / HOMELESS Condition: GOOD Referrals: PCPLUBA (PCP) NILDA ROJO Additional Instructions: You were seen today in the emergency department for neck pain. A CT scan was performed, there were no concerning findings that would require admission to the hospital or immediate intervention by a neurologist or neurosurgeon or orthopedic surgeon. I recommend using ice therapy 30 minutes on 30 minutes off for the next 48 hours, I am prescribing you Flexeril to take at home up to 3 times a day for muscle spasm, I am prescribing you 600 mg ibuprofen for dis comfort and inflammation. I am giving you a work excuse to return to work on Tuesday, please use your day off Tuesday to secure an appointment with your primary care physician for ongoing evaluation and management of your neck pain. If you are unable to secure an appointment with your primary care physician, I have provided you a primary care provider DONTAE Lange to use if you choose so. Please return to the emergency department for worsening symptoms or other concerns. EMERGENCY DEPARTMENT GENERAL DISCHARGE INSTRUCTIONS Thank you for coming to [facility] (ED) today and trusting us with you care. We trust that you had a positivie experience in our Emergency Department. If you wish to speak to the department management, you may call the director at [phone]. YOUR FOLLOW UP INSTRUCTIONS ARE FOLLOWS: 1. Do you have a private Doctor? If you do not have a private doctor, please ask for a resource list of physicians or clinics that may be able to assist you with follow up care. 2. The Emergency Physician has interpreted your x-rays. The X-Ray specialist will also review them. If there is a change in the findings, you will be notified in 48 hours when at all possible. 3. A lab test or culture has been done, your results will be reviewed and you will be notified if you need a change in treatment. ADDITIONAL INSTRUCTIONS AND INFORMATION: 1. Your care today has been supervised by a physician who is specially trained in emergency care. Many problems require more than one evaluation for a complete diagnosis and treatment. We recommend that you schedule your follow up appointment as recom mended to ensure complete treatment of you illness or injury. If you are unable to obtain follow up care and continue to have a problem, or if your condition worsens, we recommend that you return to the ED. 2. We are not able to safely determine your condition over the phone nor are we able to give sound medical advice over the phone. For these safety reasons, if you call for medical advice we will ask you to come to the ED for further evaluation. 3. If you have any questions regarding these discharge instructions please call the ED at [phone]. SAFETY INFORMATION: In the interest of safety, wellness, and injury prevention; we encourage you to wear your sealbelt, if you smoke; quite smoking, and we encourage family to use a protective helmet for bicycling and other sporting events that present an increased risk for head injury. IF YOUR SYMPTOMS WORSEN OR NEW SYMPTOMS DEVELOP, OR YOU HAVE CONCERNS ABOUT YOUR CONDITION; OR IF YOUR CONDITION WORSENS WHILE YOU ARE WAITING FOR YOUR FOLLOW UP APPOINTMENT; EITHER CONTACT YOUR PRIMARY CARE DOCTOR, THE PHYSICIAN WHOSE NAME AND NUMBER YOU WERE GIVEN, OR RETURN TO THE ED IMMEDIATELY. Scripts Ibuprofen (IBUPROFEN) 600 Mg Tablet 600 MG PO TID PRN PRN for PAIN, #20 TAB 0 Refills Prov: ELISA MART APRN 09/20/20 Cyclobenzaprine Hcl (CYCLOBENZAPRINE HCL) 10 Mg Tablet 1 TAB PO TID PRN PRN for PAIN, #12 TAB 0 Refills Prov: ELISA MART APRN 09/20/20 ELISA MART APRN September 20, 2020 13:47
--- NOTE | 2020-09-20 14:00 | RAD ---
CT cervical spine without contrast: Reason for examination: Severe neck pain. Helical images were obtained through the cervical spine from skull base through the thoracic apices w ith no contrast administered. Reconstruction was performed in sagittal and coronal planes. Exposure: One or more of the following individualized dose reduction techniques were utilized for thi s examination: 1. Automated exposure control 2. Adjustment of the mA and/or kV according to patient size 3. Use of iterative reconstruction technique. The C1 ring is intact. The odontoid process is intact and normally centered between the lateral claudia s of C1. The cervical vertebral bodies are normally aligned anteriorly and posteriorly. No acute frac ture or subluxation is evident. Posterior elements also appear to be intact. The intervertebral discs are maintained. Prevertebral soft tissues are normal. No spinal stenosis is evident. IMPRESSION: No acute abnormality evident in the cervical spine. Electronically signed by: Kia Bernal MD (09/20/2020 1:57 PM) AMILCAR
[2020-09-20] MEDS ORDERED: HYDROcodone/APAP 5/325MG 1 TAB TABLET PO ONE (14:15)
[2020-09-20] MEDS ORDERED: IBUP600T16 PO (14:18)
[2020-09-20] MEDS ORDERED: CYCL-331 PO (14:18)
== END 2020-09-20 14:26 | disposition home or self-care (01) ==
LOC: ER 13:05
DX: M54.2 Cervicalgia (principal); F41.9 Anxiety disorder, unspecified; F32.9 Major depressive disorder, single episode, unspecified; M79.7 Fibromyalgia; F17.210 Nicotine dependence, cigarettes, uncomplicated; Z87.442 Personal history of urinary calculi; Z88.1 Allergy status to other antibiotic agents
CPT/HCPCS: 72125; 99284-25

== ENCOUNTER 2020-12-23 06:04 | Emergency (ER) | payer OTHER ==
[~2020-12-23] VITALS: Ht 152.4 cm; Wt 83.5 kg
[2020-12-23 06:04] VITALS: BP 107/71
[~2020-12-23 06:04] MED LIST changes: +CYCL-331 PO; +IBUP600T16 PO
--- NOTE | 2020-12-23 06:44 | PHYS DOC ---
Past History Past Medical History: Anxiety, Depression, Fibromyalgia, Kidney Stones Additional Past Medical Histor: Gastritis Past Surgical History: Cholecystectomy, Tubal ligation Additional Past Surgical Histo: hernia repair, right wrist surgery Smoking: Cigarettes Alcohol Use: Rarely Drug Use: Marijuana General Adult EDM: Chief Complaint: COUGH HPI: HPI: Patient is a 35-year-old female coming in for a few days of sore throat, right ear pain, and loss of smell and taste. Denies any respiratory symptoms or GI complaints. Is not vaccinated for COVID-19. Was recently with a friend who was diagnosed with Covid a few days ago. Review of Systems: Review of Systems: All other systems within normal limits except for as noted in the HPI Allergies: Allergies: Allergies Coded Allergies Type Severity Reaction Last Updated Verified azithromycin Allergy Intermediate 06/14/20 Yes Physical Exam: PE: Constitutional: Well developed, well nourished, no acute distress, non-toxic appearance. [] HENT: Normocephalic, atraumatic, bilateral external ears normal, nose normal. Bilateral TMs normal, no exudates or erythema of posterior oropharynx. [] Eyes: PERRLA, conjunctiva normal, no discharge. [] Neck: No rigidity, supple, no stridor. [] Cardiovascular: Regular rate and rhythm, brisk cap refill [] Lungs & Thorax: Non labored symmetric respirations, no tachypnea or respiratory distress [] Abdomen: Soft, nondistended. Skin: Warm, dry, no erythema, no rash. [] Back: Unremarkable Extremities: No deformities, range of motion grossly intact, no lower extremity edema [] Neurologic: Alert and oriented X 3, no focal deficits noted. [] Psychologic: Affect normal, judgement normal, mood normal. [] EKG: EKG: [] Radiology/Procedures: Radiology/Procedures: [] Heart Score: C/O Chest Pain: No Risk Factors: Risk Factors: DM, Current or recent (<one month) smoker, HTN, HLP, family history of CAD, obesity. Risk Scores: Score 0 - 3: 2.5% MACE over next 6 weeks - Discharge Home Score 4 - 6: 20.3% MACE over next 6 weeks - Admit for Clinical Observation Score 7 - 10: 72.7% MACE over next 6 weeks - Early Invasive Strategies Course & Med Decision Making: Course & Med Decision Making Pertinent Labs and Imaging studies reviewed. (See chart for details) [] Dragon Disclaimer: Dragon Disclaimer: This electronic medical record was generated, in whole or in part, using a voice recognition dictation system. Departure Departure: Impression: Primary Impression: Person under investigation for COVID-19 Disposition: 01 HOME / SELF CARE / HOMELESS Condition: STABLE Referrals: PCP,LUBA (PCP) Additional Instructions: You have been tested for or diagnosed with COVID-19. It is an infection caused by a new type of coronavirus. COVID-19 will cause cold-like or mild flu symptoms in most. It can cause more severe symptoms like problems breathing in some. There is no treatment for COVID-19. The body will clear the infection over time. Self-care will help to ease discomfort. Steps to Take: Self-Care Rest as needed. Healthy habits may help you feel better. Steps include: Choose healthy foods including fruits and vegetables. Drink water throughout the day. Get plenty of sleep each night. If you smoke, try to quit. It may ease breathing. Avoid alcohol. Keep Others Healthy The virus can spread to others. Droplets are released every time you sneeze or cough. The droplets can get into the mouth, nose, or eyes of people near you and lead to infection. To lower the chances of spreading COVID-19 to others: Stay at home until your doctor has said it is safe to leave. If you tested positive this will mean staying isolated until both of the following are true: At least 7 days have passed since the start of illness. You are free of fever for at least 72 hours without the use of medicine. During this time: - Avoid public areas, events, or transportation. Do not return to work or school until your doctor has said it is safe to do so. - Call ahead if you need to go to a medical center. Let them know you may have COVID-19. It will help them guide you where to go. They may also ask you to wear a facemask when you come to the office. - If you call for emergency medical services, let them know you may have COVID- 19. While at home: - Try to avoid close contact with others. Stay about 6 feet away. - If possible, spend most of your time in a separate room from others. - Use a face mask if you will be in close contact with others such as sharing a room or vehicle. - Have someone wipe down common surfaces in the home. Use household sling operator every day on areas like doorknobs, counters, or sinks. - Cough or sneeze into a tissue. Throw the tissue away right after use. If a tissue is not available, cough or sneeze into your elbow. - Wash your hands often. Wash them after sneezing or coughing. Use soap and water and wash for at least 20 seconds. Alcohol based hand chrome cleaner can be used if soap and water is not available. - Do not prepare food for others. Avoid sharing personal items like forks, spoons, or toothbrushes. - Avoid close contact with pets while you are sick. There is no evidence of the virus passing to pets. This is a safety step until more is known about this virus. Isolation can be frustrating. Social interaction can help. Keep in touch with friends and family through phone and tech options. You can still interact with others in your home, just keep a safe distance of about 6 feet. Follow-up: Your doctors office will check in with you to see if there are any changes in your health. You may be asked to keep track of symptoms to share with them. They will also let you know when you are clear to be in public again. Problems to Look Out For: Contact your doctor if your recovery is not going as you expect. Get emergency care if you have problems such as: - Trouble breathing - Nonstop chest pain or pressure - Changes in awareness, confusion, or problems waking - Lips or face have bluish color - Worsening of symptoms If you think you have an emergency, call for emergency medical services right away. [facility] MD Dec 23, 2020 06:44
== END 2020-12-23 06:50 | disposition home or self-care (01) ==
LOC: ER 06:04
DX: U07.1 COVID-19 (principal); M79.7 Fibromyalgia; F17.210 Nicotine dependence, cigarettes, uncomplicated; Z87.442 Personal history of urinary calculi; Z90.49 Acquired absence of other specified parts of digestive tract; Z98.51 Tubal ligation status; Z88.1 Allergy status to other antibiotic agents
CPT/HCPCS: 87070; 87880; 99283; C9803; U0003

== ENCOUNTER 2021-02-08 20:44 | Emergency (ER) | payer OTHER ==
[~2021-02-08] VITALS: Ht 152.4 cm; Wt 87.5 kg
--- NOTE | 2021-02-08 21:16 | PHYS DOC ---
Past History Past Medical History: Anxiety, Depression, Fibromyalgia, Kidney Stones Additional Past Medical Histor: Gastritis, PTSD, KIDNEY STONES Past Surgical History: Other Additional Past Surgical Histo: hernia repair, right wrist surgery Smoking: Cigarettes Alcohol Use: Occasionally Drug Use: Marijuana General Adult EDM: Chief Complaint: ABDOMINAL PAIN HPI: HPI: ".. I am having bad kidney stone pain .. on the right.. I ve had too many stone to count... " Patient is a 35 year old female who presents with above hx and complaints of Rt./ flank pain similar to prior kidney stones. Patient states she has had multiple kidney stones in the past. Has been following most often at for kidney stone exacerbations. Patient denies any intake of bad food. Patient denies any trauma. Patient [place] any recent travel outside [place]. Patient denies any specific ill contacts. Patient has past medical history of anxiety, depression, fibromyalgia, recurrent kidney stones, gastritis, biliary colic, tubal ligation, hernia repair,polysubstance abuse, hx of possible narcotic seeking behaviors. Patient does use marijuana and tobacco. Patient n ormally follows with for care. Patient has not had COVID vaccination. Review of Systems: Review of Systems: Constitutional: History of chills Eyes: Denies change in visual acuity HENT: History of nasal congestion . Respiratory: Denies cough or shortness of breath Cardiovascular: Denies chest pain or edema GI: Complains of severe abdominal pain, nausea, and right flank pain. Complains of vomiting. Denies, bloody stools or diarrhea : Denies dysuria Musculoskeletal: Complains of right flank back pain Integument: Denies rash Neurologic: Denies headache, focal weakness or sensory changes Endocrine: Denies polyuria or polydipsia Lymphatic: Denies swollen glands Psychiatric: History of depression or anxiety Family History: Family History: Noncontributory to presentation Current Medications: Current Meds: See nursing for home meds Allergies: Allergies: Allergies Coded Allergies Type Severity Reaction Last Updated Verified azithromycin Allergy Intermediate 06/14/20 Yes Physical Exam: PE: Constitutional: Well developed, well nourished, moderate acute distress, non- toxic appearance. [] HENT: Normocephalic, atraumatic, bilateral external ears normal, oropharynx moist, no oral exudates, nose swollen turbinates clear rhinorrhea Eyes: PERRLA, EOMI, conjunctiva normal, no discharge. [] Neck: Normal range of motion, no tenderness, supple, no stridor. [] Cardiovascular: Bradycardia heart rate regular rhythm, no murmur [] bedside monitor shows a sinus bradycardia with no acute morphology Lungs & Thorax: Bilateral breath sounds to apex with scattered wheezes on auscultation [] Abdomen: Bowel sounds decreased, soft, right flank and mid abdomen tenderness, no masses, no pulsatile masses. [] Old surgical scar. Skin: Warm, dry, no erythema, no rash. [] Back: No tenderness, no CVA tenderness. [] Extremities: No tenderness, no cyanosis, no clubbing, ROM intact, no edema. No cording appreciated. Neurologic: Alert and oriented X 3, normal motor function, normal sensory function, no focal deficits noted. [] Psychologic: Affect anxious, judgement normal, mood normal. [] Current Patient Data: Labs: Note labs are not crossing over- Significant labs CBC shows leukocytosis of 12.5 hemoglobin 14.8 and platelets 308. Electrolytes showed normal sodium 138 potassium 4.3 BUN 15 creatinine 0.6 glucose 95. Coags were normal. Serial tropes showed 0.01 7 repeat cardiac troponin 0 0.017. UA showed 5-10 white cells with moderate bacteria. Rapid Covid was negative but this confirming Covid was positive. Had negative flu screen Vital Signs: Vital Signs Date Time Temp Pulse Resp B/P (MAP) Pulse Ox O2 Delivery O2 Flow Rate FiO2 02/08/21 20:53 97.8 74 18 145/60 (88) 97 Room Air EKG: EKG: My interpretation EKG shows a sinus bradycardia 52 bpm. No acute morphology time of EKG is 2304 hrs. [] Radiology/Procedures: Radiology/Procedures: [][address] [address] IMAGING REPORT Signed PATIENT: RAMÓN BROWNLEE CACCOUNT: [id number] : 1985 LOCATION: ER AGE: 35 SEX: F EXAM STATUS: REG ER ORD. PHYSICIAN: CHEL SOLIS MD REASON: hx. pain similar prior kidney stone on Rt flank and side PROCEDURE: CT ABDOMEN PELVIS WO CONTRAST Exam: CT abdomen/pelvis without intravenous contrast Indication: Pain similar to prior kidney stone on right Comparison: CT abdomen pelvis 06/14/2020 Technique: Helical CT imaging performed of the abdomen and pelvis without the use of intravenous contrast. Sagittal and coronal reformats were obtained. One or more of the following individualized dose reduction techniques were utilized for this examination: 1. Automated exposure control 2. Adjustment of the mA and/or kV according to patient size 3. Use of iterative reconstruction technique. Findings: Inherently limited evaluation without intravenous contrast. Lower chest: Lung bases are clear. The heart is normal in size. Liver: Normal noncontrast appearance of the liver. Gallbladder/Biliary Tree: Gallbladder surgically absent. Bile ducts are normal. Pancreas: Normal. Spleen: Normal. Adrenal Glands: Normal. Kidneys/Ureters/Bladder: Kidneys are normal in size. There are punctate right renal calculi. No hydronephrosis. Distal left ureteral calculus and left hydroureteronephrosis seen on prior exam has resolved. Ureters and bladder are normal. Reproductive Organs: The uterus is anteverted. An IUD is in appropriate position. Stomach, small bowel, and colon: The stomach, small bowel, colon, and appendix are normal. Vasculature: The aorta is normal in caliber. Lymph Nodes: No lymphadenopathy. Peritoneum and retroperitoneum: No free fluid or free air. Bones: No acute osseous abnormality. Impression: Right nephrolithiasis with several punctate calculi. No hydronephrosis. Electronically signed by: Malika Catalan MD (02/08/2021 10:33 PM) [facility] DICTATED AND SIGNED BY: MALIKA CATALAN MD DATE: 02/08/212227 CC: CHEL SOLIS MD; PCP,NO ~MTH0 [address] [address] IMAGING REPORT Signed PATIENT: RAMÓN BROWNLEE CACCOUNT: [id number] : 1985 LOCATION: ER AGE: 35 SEX: F EXAM STATUS: REG ER ORD. PHYSICIAN: CHEL SOLIS MD REASON: pain, hx similar prior kidneys stone PROCEDURE: ACUTE ABDOMEN SERIES EXAM: XR ABDOMEN COMP ACUTE 02/08/2021 10:04 PM CLINICAL INDICATION: Kidney stones COMPARISON: CT abdomen pelvis 06/14/2020 TECHNIQUE: AP and supine view of the abdomen, and PA view of the chest FINDINGS: No definite radiopaque urolithiasis. Bowel gas pattern is nonspecific. Scattered stool in the colon. There are cholecystectomy clips. An IUD projects over the pelvis. No acute osseous abnormality. Heart and lungs are normal. No pleural effusion or pneumothorax. IMPRESSION: No radiopaque urolithiasis or other acute abnormality. Electronically signed by: Malika Catalan MD (02/08/2021 10:27 PM) [facility] DICTATED AND SIGNED BY: MALIKA CATALAN MD DATE: 02/08/212225 CC: CHEL SOLIS MD; PCP,NO ~MTH0 0 Heart Score: C/O Chest Pain: N/A HEART Score for Chest Pain: HEART Score for Chest Pain Response (Comments) Value History Slighlty/Non-Suspicious 0 ECG Normal 0 Age < 45 0 Risk Factors 1 or 2 Risk Factors 1 Troponin < Normal Limit 0 Total 1 Risk Factors: Risk Factors: DM, Current or recent (<one month) smoker, HTN, HLP, family history of CAD, obesity. Risk Scores: Score 0 - 3: 2.5% MACE over next 6 weeks - Discharge Home Score 4 - 6: 20.3% MACE over next 6 weeks - Admit for Clinical Observation Score 7 - 10: 72.7% MACE over next 6 weeks - Early Invasive Strategies Course & Med Decision Making: Course & Med Decision Making Pertinent Labs and Imaging studies reviewed. (See chart for details) Patient encouraged to follow-up primary care. Patient encouraged to save stone if passed. Patient encouraged to follow-up with urologist. Patient if unable to get in with her urologist consider attempt to follow-up with Dr.Rupp Vargas. Patient take Flomax daily while having renal colic. Patient to push fluids. Patient remain on a clear fluid diet when having severe renal colic. Patient return if any concerns. Patient self isolate until Covid results known. Patient wear a mask when she is out and contact with others. Must follow-up. Keep follow-up her primary physicians at . Impression: 1. Renal colic 2. History of multiple renal stones 3. History of anxiety disorder and panic disorder 4. History of depression. 5. History of fibromyalgia 6. History of gastritis and GERD 7. History of polysubstance abuse and tobacco use. Drug screen tonight + Meth and Marijuana 8. Viral syndrome-rapid Covid was negative ( Late lab + COVID) 9. Appears to have possible Narcotic Seeking Behaviors 10. Hx. GERD [] Moreno Disclaimer: Moreno Disclaimer: This electronic medical record was generated, in whole or in part, using a voice recognition dictation system. Departure Departure: Referrals: PCP,NO (PCP) Scripts Sulfamethoxazole/Trimethoprim (BACTRIM DS TABLET) 1 Each Tablet 1 TAB PO BID for uti for 7 Days, #14 TAB 0 Refills Prov: CHEL SOLIS MD 02/09/21 Ondansetron Hcl (ZOFRAN) 4 Mg Tablet 8 MG PO QIDPRN PRN for NAUSEA/VOMITING, #30 TAB Prov: CHEL SOLIS MD 02/09/21 Tamsulosin Hcl (FLOMAX) 0.4 Mg Cap.er.24h 0.4 MG PO DAILY for renal colic, #30 CAP.SR Prov: CHEL SOLIS MD 02/09/21 Moreno Disclaimer This chart was dictated in whole or in part using Voice Recognition software in a busy, high-work load, and often noisy Emergency Department environment. It may contain unintended and wholly unrecognized errors or omissions. Dragon Disclaimer This chart was dictated in whole or in part using Voice Recognition software in a busy, high-work load, and often noisy Emergency Department environment. It may contain unintended and wholly unrecognized errors or omissions. CHEL SOLIS MD Feb 08, 2021 21:16
[2021-02-08 21:42] LABS: BARBITURATES NEG (NEG); BENZODIAZEPINES NEG (NEG); CANNABINOIDS POS (NEG); COCAINE NEG (NEG); METHADONE NEG (NEG); OPIATES NEG (NEG); PHENCYCLIDINE NEG (NEG)
[2021-02-08 21:45] LABS: AMPHETAMINE/METHAMPHETAMINE POS (NEG)
[2021-02-08 21:48] LABS: BASO # 0.1 x10^3/uL (0.0-0.2); BASO % 1 % (0-3); EOS # 0.5 x10^3/uL (0.0-0.7); EOS % 4 % (0-3); HEMATOCRIT 44.3 % (36.0-47.0); HEMOGLOBIN 14.8 g/dL (12.0-15.5); LYMPH # 4.2 x10^3/uL (1.0-4.8); LYMPH % 34 % (24-48); MEAN CORPUSCULAR HEMOGLOBIN 31 pg (25-35); MEAN CORPUSCULAR HGB CONC 33 g/dL (31-37); MEAN CORPUSCULAR VOLUME 93 fL (79-100); MONO # 0.6 x10^3/uL (0.0-1.1); MONO % 5 % (0-9); NEUT # 7.1 x10^3uL (1.8-7.7); NEUT % 56 % (31-73); PLATELET COUNT 308 x10^3/uL (140-400); RED BLOOD COUNT 4.76 x10^6/uL (3.50-5.40); RED CELL DISTRIBUTION WIDTH 14.7 % (11.5-14.5); WHITE BLOOD COUNT 12.5 x10^3/uL (4.0-11.0)
[2021-02-08 21:52] LABS: BILIRUBIN,URINE NEG (NEG); CLARITY,URINE CLOUDY; COLOR,URINE YELLOW; GLUCOSE,URINE NEG (NEG); NITRITE,URINE NEG (NEG); RBC,URINE 0 /HPF (0-2); UROBILINOGEN,URINE 0.2 mg/dL (0.2 mg/dL)
[2021-02-08 21:53] LABS: BACTERIA,URINE MOD /HPF (0-FEW); SQUAMOUS EPITHELIAL CELL,UR MOD /LPF
[2021-02-08 21:54] LABS: CALCIUM 9.2 mg/dL (8.5-10.1); CREATININE 0.6 mg/dL (0.6-1.0); GFR 113.8; POTASSIUM 4.3 mmol/L (3.5-5.1)
[2021-02-08 22:00] LABS: ALBUMIN 3.5 g/dL (3.4-5.0); DIRECT BILIRUBIN 0.1 mg/dL (0.0-0.2); TOTAL BILIRUBIN 0.2 mg/dL (0.2-1.0); TOTAL PROTEIN 6.9 g/dL (6.4-8.2)
[2021-02-08] MEDS ORDERED: ONDANSETRON PF 4 MG/2 ML VIAL. IVP ONE (22:00)
[2021-02-08] MEDS ORDERED: FAMOTIDINE 20 MG/2 ML VIAL IVP ONE (22:00)
[2021-02-08] MEDS ORDERED: KETOROLAC 30 MG/ML VIAL. IVP ONE (22:00)
[2021-02-08] MEDS ORDERED: IV RINGERS SOLUTION,LACTATED 1,000 ML IV SCH (22:00)
[2021-02-08] MEDS ORDERED: MORPHINE SULFATE 10 MG/ML SYRINGE. SQ ONE (22:30)
--- NOTE | 2021-02-08 22:30 | RAD ---
EXAM: XR ABDOMEN COMP ACUTE 02/08/2021 10:04 PM CLINICAL INDICATION: Kidney stones COMPARISON: CT abdomen pelvis 06/14/2020 TECHNIQUE: AP and supine view of the abdomen, and PA view of the chest FINDINGS: No definite radiopaque urolithiasis. Bowel gas pattern is nonspecific. Scattered stool in the colon. There are cholecystectomy clips. An IUD projects over the pelvis. No acute osseous abnorma lity. Heart and lungs are normal. No pleural effusion or pneumothorax. IMPRESSION: No radiopaque urolithiasis or other acute abnormality. Electronically signed by: Malika Catalan MD (02/08/2021 10:27 PM) [facility]
[2021-02-08 22:33] LABS: PLT ESTIMATE ADEQUATE (ADEQUATE)
--- NOTE | 2021-02-08 22:35 | RAD ---
Exam: CT abdomen/pelvis without intravenous contrast Indication: Pain similar to prior kidney stone on right Comparison: CT abdomen pelvis 06/14/2020 Technique: Helical CT imaging performed of the abdomen and pelvis without the use of intravenous cont rast. Sagittal and coronal reformats were obtained. One or more of the following individualized dose reduction techniques were utilized for this examinat ion: 1. Automated exposure control 2. Adjustment of the mA and/or kV according to patient size 3. Use of iterative reconstruction technique. Findings: Inherently limited evaluation without intravenous contrast. Lower chest: Lung bases are clear. The heart is normal in size. Liver: Normal noncontrast appearance of the liver. Gallbladder/Biliary Tree: Gallbladder surgically absent. Bile ducts are normal. Pancreas: Normal. Spleen: Normal. Adrenal Glands: Normal. Kidneys/Ureters/Bladder: Kidneys are normal in size. There are punctate right renal calculi. No hydro nephrosis. Distal left ureteral calculus and left hydroureteronephrosis seen on prior exam has resolv ed. Ureters and bladder are normal. Reproductive Organs: The uterus is anteverted. An IUD is in appropriate position. Stomach, small bowel, and colon: The stomach, small bowel, colon, and appendix are normal. Vasculature: The aorta is normal in caliber. Lymph Nodes: No lymphadenopathy. Peritoneum and retroperitoneum: No free fluid or free air. Bones: No acute osseous abnormality. Impression: Right nephrolithiasis with several punctate calculi. No hydronephrosis. Electronically signed by: Malika Catalan MD (02/08/2021 10:33 PM) [facility]
[2021-02-08 23:24] LABS: INFLUENZA A PATIENT NEGATIVE (NEGATIVE); INFLUENZA B PATIENT NEGATIVE (NEGATIVE)
[2021-02-08] MEDS ORDERED: SMZ/TMP 800/160MG TABLET. PO ONE (23:45)
[2021-02-08] MEDS ORDERED: PROCHLORPERAZINE 10 MG/2 ML VIAL. IV ONE (23:45)
[2021-02-08] MEDS ORDERED: MAGNESIUM HYDROXIDE 2,400 MG/30 ML ORAL.SUSP. PO ONE (23:45)
[2021-02-08] MEDS ORDERED: TAMSULOSIN 0.4 MG CAP.ER.24H. PO ONE (23:45)
--- NOTE | 2021-02-08 23:58 | EKG ---
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
[2021-02-09 00:27] VITALS: BP 139/87
[2021-02-09] MEDS ORDERED: SULF1TAB24 PO (01:37)
[2021-02-09] MEDS ORDERED: ONDA4TAB7 PO (01:37)
[2021-02-09] MEDS ORDERED: TAMS0.4C97 PO (01:37)
--- NOTE | 2021-02-09 07:44 | NUR ---
IP: Attempted to notify patient of positive COVID19 test result. Voicemail message to please call at number provided.
--- NOTE | 2021-02-09 13:51 | NUR ---
IP: Patient notified of positive COVID19 test results Verbalized understanding.
== END 2021-02-09 02:00 | disposition home or self-care (01) ==
LOC: ER 20:44
DX: U07.1 COVID-19 (principal); N23 Unspecified renal colic; F41.9 Anxiety disorder, unspecified; F32.9 Major depressive disorder, single episode, unspecified; M79.7 Fibromyalgia; B34.9 Viral infection, unspecified; K21.9 Gastro-esophageal reflux disease without esophagitis; F19.10 Other psychoactive substance abuse, uncomplicated; F17.210 Nicotine dependence, cigarettes, uncomplicated; Z88.1 Allergy status to other antibiotic agents; Z87.442 Personal history of urinary calculi
CPT/HCPCS: 36415; 74022; 74176; 80048; 80076; 80307; 81001; 81025; 82550; 83690; 84484; 85025; 85610; 85730; 87086; 87426; 87804; 93005; 96361; 96372; 96374; 96375; 99285; C9803; J0780; J1885; J2060; J2270; J2405; J3490; J7120; U0003

== ENCOUNTER → 2021-03-06 | Outpatient (CLI) | payer OTHER ==
[2021-02-09 00:27] VITALS: BP 139/87
[~2021-03-06] MED LIST changes: +ONDA4TAB7 PO; +SULF1TAB24 PO
--- NOTE | 2021-03-06 15:22 | RAD ---
3 views of each knee. AP pelvis. 2 additional views left hip. 03/06/2021 12:35 PM Indication: Reason: LEFT HIP AND PELVIC PAIN, FEELS POPPING / Spl. Instructions: / History: Comparison study: None Findings: Left knee: No fracture or dislocation is identified. Articular surfaces are uninterrupted and smooth. Small round well-corticated ossification superior to the patella is likely a small ossicle or second lorena ossification center. Soft tissues are otherwise unremarkable. Right knee: No fracture or dislocation is seen. Articular surfaces are uninterrupted and smooth. Soft tissues are unremarkable. AP pelvis: No fracture or dislocation. Articular surfaces are uninterrupted. Joint spaces are preserv ed. IUD noted. Soft tissues are otherwise unremarkable. 2 views left hip. Joint space is preserved. No fracture or dislocation. Articular surfaces are uninte rrupted. IMPRESSION: No radiographic evidence of acute osseous abnormality Electronically signed by: Job Esteban MD (03/06/2021 3:19 PM) [id number]
== END ==
LOC: RAD 12:23
PROVIDERS: ATTEND Family Medicine
DX: M25.552 Pain in left hip (principal)
CPT/HCPCS: 73502; 73562-50